=== PATIENT | male | born 1970 | race Caucasian/White ===

== ENCOUNTER 2024-05-05 10:36 | Emergency (ER) | payer OTHER, SELFPAY ==
[2024-05-05 10:45] VITALS: BP 145/72; PULSE 100; RESP 16; TEMP 36.9; O2SAT 100
--- NOTE | 2024-05-05 11:43 | ED.SKABFB ---
HPI - Skin/Abscess/Foreign Bdy General Chief complaint: Skin/Abscess/Foreign Body Stated complaint: Right leg wound weeping Time Seen by Provider: 05/05/24 11:24 Source: patient and RN notes reviewed Mode of arrival: ambulatory Limitations: no limitations History of Present Illness HPI narrative: Patient presents today with a large wound to his right thigh. Approximately 20 days ago patient had an abscess lanced and drained in a local ER due to folliculitis. States the abscess was very large. At that time he was placed on 10 days of doxycycline, which he finished. States he has been dressing his wound with a nonadherent dressing and Coban. Since he has had cellulitis in the past and has used hydrocortisone for irritation, he has been applying hydrocortisone around the incision site. He has also been only changing his dressing after rinsing with water every other day. Approximately 10 days ago the area started to weep yellow fluid from the skin surrounding the incision, not the incision itself, which has been healing well. He has not been able to see his PCP due to no appointment availability. Related Data Home Medications Medication Instructions Recorded Confirmed lisinopril 40 mg tablet 40 mg PO DAILY 05/05/24 05/05/24 Allergies Allergy/AdvReac Type Severity Reaction Status Date / Time No Known Allergies Allergy Unverified 01/12/19 10:59 Review of Systems Review of Systems: CONSTITUTIONAL: Denies body aches, fever, chills, or sweats. EYES: Denies visual changes, redness, or discharge. ENT: Denies rhinorrhea, congestion, sore throat, or otalgia. CARDIOVASCULAR: Denies chest pain, palpitations, or edema. RESPIRATORY: Denies cough or dyspnea. GASTROINTESTINAL: Denies abdominal pain, nausea, vomiting, or diarrhea. GENITOURINARY: Denies dysuria or hematuria. SKIN: Redness to right thigh MUSCULOSKELETAL: Denies back pain, joint pain, or myalgia. NEUROLOGIC: Denies headache, numbness, tingling, or weakness. PSYCH: Denies depression or anxiety. PMFSH Comments At time of signature, I have reviewed and agree with nursing past medical, surgical, social and family history unless otherwise noted. Please see nursing chart for further information. There is no relevant family history pertinent to the presenting complaint Exam Narrative: GENERAL: Well-appearing, well-nourished, and in no acute distress. HEAD: Normocephalic, atraumatic. EYES: EOMI. No redness or drainage. Conjunctivae normal. ENT: Mucous membranes pink and moist. NECK: Normal AROM. CHEST: No respiratory distress. EXTREMITIES: Right upper le x 15 cm area severe erythema and excoriation, with honey-colored weeping from the skin. Approximately 1.5 cm healing incision in the center. Mild induration. SKIN: Capillary refill normal. Normal skin turgor. NEURO: No focal deficits. Alert and oriented x3. Gait steady. PSYCH: Normal affect. No signs of depression or anxiety. Course Course Level of Care: Express Care Visit Vital Signs Vital signs: Vital Signs Temperature 98.4 F 05/05/24 10:45 Pulse Rate 100 05/05/24 10:45 Respiratory Rate 16 05/05/24 10:45 Blood Pressure 145/72 H 05/05/24 10:45 Pulse Oximetry 100 05/05/24 10:45 Oxygen Delivery Room Air 05/05/24 10:45 Temperature 98.4 F 05/05/24 10:45 Pulse Rate 100 05/05/24 10:45 Respiratory Rate 16 05/05/24 10:45 Blood Pressure 145/72 H 05/05/24 10:45 Pulse Oximetry 100 05/05/24 10:45 Oxygen Delivery Room Air 05/05/24 10:45 Reviewed MDM - Skin/Abscess/Foreign Bdy MDM Narrative Medical decision making narrative: Patient will be treated with Keflex and mupirocin for cellulitis and impetigo. Extensive wound care instructions given to patient. Anticipatory guidance given. ED precautions given. Differential Diagnosis Differential diagnosis: Likely abscess of skin or subcutaneous tissue, dermatophytosis, cellulitis, impetigo and contact de
== END 2024-05-05 11:50 | disposition home or self-care (01) ==
PROVIDERS: Emergency Provider Nurse Practitioner; PCP Emergency Medicine
DX: L03.115 Cellulitis of right lower limb (principal); L01.00 Impetigo, unspecified
CPT/HCPCS: 99213; G0463

== ENCOUNTER 2024-07-16 09:18 | Emergency (ER) | payer OTHER, SELFPAY ==
[2024-07-16 09:21] VITALS: BP 133/96; PULSE 81; RESP 16; TEMP 36.6; O2SAT 100
--- NOTE | 2024-07-16 09:26 | ED.SKABFB ---
HPI - Skin/Abscess/Foreign Bdy General Chief complaint: Skin/Abscess/Foreign Body Stated complaint: Hair folicle infection Source: patient Mode of arrival: ambulatory Limitations: no limitations History of Present Illness HPI narrative: 53 y/o male presents for c/o right thigh wound with redness and yellow/clear drainage over the past few days. Reports the same symptoms 04/2024, diagnosed with folliculitis then cellulitis. States he has been dressing his wound with a nonadherent dressing and Coban. Since he has had cellulitis in the past and has used hydrocortisone for irritation, he has been applying hydrocortisone around the incision site. He has also been only changing his dressing after rinsing with water every other day. He has not been able to see his PCP. Denies pain, n/v/d/f/c. Related Data Home Medications ?Medication ?Instructions ?Recorded ?Confirmed ?Last Taken ?Type lisinopril 40 mg tablet 40 mg PO DAILY 05/05/24 05/05/24 Unknown History Allergies Allergy/AdvReac Type Severity Reaction Status Date / Time No Known Allergies Allergy Verified 07/16/24 09:27 Review of Systems Review of Systems: CONSTITUTIONAL: Denies body aches, fever, chills, or sweats. EYES: Denies visual changes, redness, or discharge. ENT: Denies rhinorrhea, congestion CARDIOVASCULAR: Denies chest pain, palpitations, or edema. RESPIRATORY: Denies cough or dyspnea. GASTROINTESTINAL: Denies abdominal pain, nausea, vomiting, or diarrhea. SKIN: per HPI MUSCULOSKELETAL: Denies back pain, joint pain, or myalgia. NEUROLOGIC: Denies headache, numbness, tingling, or weakness. PMFSH Comments At time of signature, I have reviewed and agree with nursing past medical, surgical, social and family history unless otherwise noted. Please see nursing chart for further information. There is no relevant family history pertinent to the presenting complaint Exam Narrative: GENERAL: Well-appearing EYES: conjunctivae clear, and EOMI. ENT: Mucous membranes moist. Oropharynx without edema, erythema or lesions. NECK: Supple. No lymphadenopathy CHEST: Clear to auscultation. HEART: Regular rate and rhythm. SKIN: Warm, dry. Right anterior thigh with circular area of erythema 6cm diameter, medial and anterior thigh with patchy erythema c/w folliculitis/cellulitis approx 20cm diameter Areas are weeping honey colored serous fluid. No streaking, warmth, or tenderness. NEURO: Alert and oriented x3. Skin: Full body images:  1. 6cm area of erythema. 2. scattered erythema patches c/w folliculitis Course Course Emergency Course: Patient is aware of diagnosis, understands and agrees to treatment plan. Anticipatory guidance given. Patient agrees to follow-up as directed and is aware of reasons to seek care at the emergency department. Portions of this record may have been created with voice recognition software Level of Care: Express Care Visit Vital Signs Vital signs: Vital Signs Temperature 98 F 07/16/24 09:21 Pulse Rate 81 07/16/24 09:21 Respiratory Rate 16 07/16/24 09:21 Blood Pressure 133/96 H 07/16/24 09:21 Pulse Oximetry 100 07/16/24 09:21 Oxygen Delivery Room Air 07/16/24 09:21 Temperature 98 F 07/16/24 09:21 Pulse Rate 81 07/16/24 09:21 Respiratory Rate 16 07/16/24 09:21 Blood Pressure 133/96 H 07/16/24 09:21 Pulse Oximetry 100 07/16/24 09:21 Oxygen Delivery Room Air 07/16/24 09:21 Reviewed MDM - Skin/Abscess/Foreign Bdy MDM Narrative Medical decision making narrative: Patient will be treated with Keflex and mupirocin for cellulitis and impetigo. Advised f/u with pcp and derm as this is a recurrent problem Discussed physical exam findings. Advised supportive measures and signs/symptoms to go to the ER. Pt is appropriate for outpt treatment and f/u.. Instructed patient to go to nearest ER immediately for any worsening symptoms including but not limited to: fever, spreading rash, pain, sore throat, headache, dizziness, chest pain, trouble breathing, or any symptoms concerning to the patient. Differential Diagnosis Differential diagnosis: Likely abscess of skin or subcutaneous tissue, urticaria, herpes zoster, cellulitis and contact dermatitis Discharge Plan Discharge Clinical Impression: Cellulitis Patient Disposition: Home, Self-Care Condition: Stable Instructions: Antibiotic Form, Cellulitis (ED) Additional Instructions: Keep the area clean and dry - cleanse with warm water and mild soap and allow to fully dry. apply the ointment as directed to the site Take antibiotic as directed Keep it open to air if possible (no bandages unless the site is draining) Watch for worsening symptoms including pain, redness, swelling, streaking, pus/drainage, fever. Go to the ER with any of these symptoms or concerns. Follow up with primary care provider in 1-2 weeks, call today to schedule an appointment Recommend follow up with dermatology as this is a recurrent issue Dermatologists: [facility] [address] [phone] [facility] [address] [phone] [facility] [address] [place] [phone] [facility] [address] [phone] Patient Language: Urdu Prescriptions: New cephalexin 500 mg capsule 500 mg PO Q6H 10 Days Qty: 40 0RF mupirocin 2 % ointment 1 applic topical BID 14 Days Qty: 22 0RF No Action lisinopril 40 mg tablet 40 mg PO DAILY Follow-up/Referrals: Jb Aquino MD [Primary Care Provider] - Time of Disposition: 09:39
--- OUTSIDE RECORDS SUMMARY | 2024-07-23 23:44 | XMS_ITS | Continuity of Care Document ---
Author Organization [facility] Address [address] [place] [id number] Care Team Providers Care Regional Owner Operator Truck Driver Name Role Phone AquinoJb Anay Primary Care Physician Encounter [facility] Financial Number [id number] Date(s): 06/21/22 - 06/21/[address] [id number] Encounter Diagnosis Syncope and collapse(Discharge Diagnosis) - 06/21/22 Discharge Disposition: Home or Self Care Attending Physician: Chino Wolfe ELECTRON BEAM WELDING MACHINE OPERATOR Referring Physician: Self, Referred Allergies, Adverse Reactions, Alerts No Known Allergies Medications dextromethorphan-promethazine 15 mg-6.25 mg/5 mL oral syrup 5 mL, Oral, r0nygth, PRN, 120 mL, 0, 0, cough, 06/28/2022 1911, Route to Pharmacy Electronically, [facility], [id number], 190, cm, 06/21/2022 1520, Height, 105, kg, 06/21/2022 1520, Weight Start Date: 06/21/22 Stop Date: 06/28/22 Status: Ordered lisinopril 40 mg oral tablet 0 Start Date: 06/21/22 Status: Ordered Vitamin D3 0 Start Date: 06/21/22 Status: Ordered Mental Status 06/21/22 Orientation Oriented x 4 Vital Signs Most recent to oldest [Reference Range]: 1 Temperature Temporal Artery [35.8-38 Deg C] 38.4 DegC *H* (06/21/22 2:24 PM) Peripheral Pulse Rate [60-100 bpm] 126 b pm *H (06/21/22 2:24 PM) Respiratory Rate [14-22 br/min] 28 br/mi n *H* (06/21/22 2:24 PM) Blood Pressure [89-139/60-90 mm Hg] 122/ 73mm Hg (06/21/22 2:24 PM) Social History Social History Type Response Alcohol Never alcohol user Substance Abuse Never drug user Smoking Status Never smoker;Never; Tobacco Cessation Counseling Requested N/A entered on: 06/21/22 Sex Note * Chino Wolfe ELECTRON BEAM WELDING MACHINE OPERATOR: PERFORM, SIGN, VERIFY Event Display: [facility] Note-Physician Authored Date: Patient: CHANDLER IGNACIO Age: 51 years Sex: Male : 1970 Associated Diagnoses: None Author: Chino Wolfe NP Basic Information Vital signs: Vital Signs 06/21/2022 14:24 INFECTION PREVENTION PRACTITIONER Temperature Temporal Artery 38.4 DegC H Peripheral Pulse Rate 126 bpm H* Respiratory Rate 28 br/min H Systolic Blood Pressure 122 mm Hg Diastolic Blood Pressure 73 mm Hg , Oxygen saturation: Basic Oxygen Information 06/21/2022 14:24 INFECTION PREVENTION PRACTITIONER Oxygen Saturation 100 % . Time seen: Date & time 06/21/2022 14:42:00. Additional information:: Chief Complaint from Nursing Triage Note : Chief Complaint Description 06/21/2022 14:24 INFECTION PREVENTION PRACTITIONER Chief Complaint Description at 1200 passed out while standing in line, had blurry vision, has had an upper respiratory complaints, coughing, stuffy nose, not sleeping, fatigued feeling, poor apetite, feels weak . History of Present Illness The patient presents with syncope. The onset was just prior to arrival. Associated symptoms: fever,chills, shortness of breath and dizziness. Review of Systems Constitutional symptoms: Fever, chills. Skin symptoms: no rash Eye symptoms: no recent vision problems ENMT symptoms: Nasal congestion, sinus pain no ear pain, no sore throat. Respiratory symptoms: Cough no shortness of breath, no sputum production, no wheezing. Cardiovascular symptoms: Palpitations, syncope, no chest pain. Gastrointestinal symptoms: no abdominal pain no nausea, no vomiting, no diarrhea. Genitourinary symptoms: no dysuria Musculoskeletal symptoms: no back pain Neurologic symptoms: Headache, no dizziness. Health Status Allergies: Allergic Reactions (Selected) NKA. Past Medical/ Family/ Social History Medical history Problem List from Nurse's Notes All Problems High blood pressure / SNOMED CT 7652007569 / Confirmed. Surgical history: Procedure History from Nurses Notes No active procedure history items have been selected or recorded.. Family history: Family History from Nurse's Notes No family history items have been selected or recorded.. Social history: Social History from Nurses Notes Alcohol Details: Never alcohol user Substance Abuse Details: Never drug user Tobacco Details: Never smoker, Smokeless Tobacco use: Never. N/A Cessation Counseling. . Physical Examination General: Alert. no acute distress. Skin: Warm. dry. Eye: Extraocular movements are intact Ears, nose, mouth and throat: Oral mucosa moist. Tympanic membrane: bilateral: and normal. Nose/nares: bilateral nares:, congestion, discharge and swelling. Sinus: bilateral:. Throat: mild and erythema, not with exudate, no uvula shift. Neck: Supple. trachea midline. Cardiovascular: Tachycardia Respiratory: Breath sounds are equal. Respirations: regular. Breath sounds: bilateral and clear. Retractions: none. Medical Decision Making Differential Diagnosis: Syncope, acute myocardial infarction, dysrhythmia, anxiety, dehydration, cerebral vascular accident, seizure. Rationale see PE and HPI. Procedure Stroke Thrombolysis Patient is:: Not a candidate for TPA because: (see comment) he is not having TPA. NIH Stroke Scale Date\Time NIH Stroke Scale Assessed: 06/21/2022 14:52:00. Level of consciousness: Alert = 0. Current month and age: Answers both correctly = 0. Open and close eyes/rehanger release hand: Obeys both correctly = 0. Best gaze: Normal = 0. Visual field testing: No visual field loss = 0. Facial paresis: Normal symmetric movement = 0. Motor function left arm: Normal = 0. Motor function right arm: Normal = 0. Motor function left leg: Normal = 0. Motor function right leg: Normal = 0. Limb ataxia: No ataxia = 0. Sensory: Normal = 0. Best language: No aphasia = 0. Dysarthria: Normal articulation = 0. Extinction and inattention: Normal = 0. Total score: Total score 0. Critical care services delivered? No Impression and Plan Diagnosis Syncope and collapse : [id number], Discharge, Emergency medicine, Medical Discharge plan Notes: He was having URI symptoms from last Friday along with diarrhea, dizziness and just prior to arrival he had syncopal episode while standing in a store, he is also complaining of SOB, he is tachycardic, has dry mucous membrane, he is febrile. I am sening him to [facility] ED for further evaluation. I spoke with Clare Preciado in ED who acceptedthe pt. . [Electronically Signed on 06/21/2022 02:52 PM INFECTION PREVENTION PRACTITIONER] Chino Wolfe ELECTRON BEAM WELDING MACHINE OPERATOR * Jeniffer Colon Thread Milling Machine Set Up Operator: PERFORM Event Display: SureScripts consent - Text Authored Date: SureScripts Consent Entered On: 06/21/2022 14:23 INFECTION PREVENTION PRACTITIONER Performed On: 06/21/2022 14:23 INFECTION PREVENTION PRACTITIONER by Jeniffer Colon Thread Milling Machine Set Up Operator SureScripts Consent Consent for Surescripts Granted : Yes Jeniffer Colon Thread Milling Machine Set Up Operator - 06/21/2022 14:23 INFECTION PREVENTION PRACTITIONER EKG study * Event Display: EKG Report * Event Display: EKG Regular * Event Display: EKG Regular Authored Date: Vent Rate: 121 bpm RR Interval: 493 msec MI Interval: 135 msec QRS Duration: 89 msec QT Interval: 312 msec QTC Interval: 384 msec P-R-T [place]: 5 - -44 - 9 degrees SINUS TACHYCARDIA LEFT AXIS DEVIATION POSSIBLE ANTERIOR MYOCARDIAL INFARCTION , PROBABLY OLD ABNORMAL ECG Electronically Signed By: Edith Lloyd MD Nurse Urgent care center Note * Celine Okeefe Clinical Educator: PERFORM Event Display: [facility] Note-Nursing Authored Date: Urgent Care Triage Entered On: 06/21/2022 14:28 INFECTION PREVENTION PRACTITIONER Performed On: 06/21/2022 14:24 INFECTION PREVENTION PRACTITIONER by Celine Okeefe Clinical Educator [facility] Triage Chief Complaint Description : at 1200 passed out while standing in line, had blurry vision, has hadan upper respiratory complaints, coughing, stuffy nose, not sleeping, fatigued feeling, poor apetite, feels weak Celine Okeefe Clinical Educator - 06/21/2022 14:24 INFECTION PREVENTION PRACTITIONER DCP GENERIC CODE Tracking Acuity : 2 - Urgent Tracking [facility] Celine Okeefe Clinical Educator - 06/21/2022 14:24 INFECTION PREVENTION PRACTITIONER Temperature Temporal Artery : 38.4 DegC(Converted to: 101.1 DegF) (H) Peripheral Pulse Rate : 126 bpm (H*) Respiratory Rate : 28 br/min (H) Systolic/Diastolic BP : 122 mm Hg Systolic/Diastolic BP : 73 mm Hg Oxygen Saturation : 100 % UCC Oxygen Therapy : Room air Pain Symptoms : No Celine Okeefe Clinical Educator - 06/21/2022 14:24 INFECTION PREVENTION PRACTITIONER (As Of: 06/21/2022 14:28 INFECTION PREVENTION PRACTITIONER) Problems(Active) High blood pressure (SNOMED CT :[id number] ) Name of Problem: High blood pressure ; Recorder: Celine Okeefe Clinical Educator; Confirmation: Confirmed ; Classification: Patient Stated ; Code: [id number] ; Contributor System: Prysm ; Last Updated: 06/21/2022 14:27 INFECTION PREVENTION PRACTITIONER ; Life Cycle Date: 06/21/2022 ; Life Cycle Status: Active ; Vocabulary: SNOMED CT Diagnoses(Active) Syncope Date: 06/21/2022 ; Diagnosis Type: Reason For Visit ; Confirmation: Complaint of ; Clinical Dx: Syncope ; Classification: Medical ; Clinical Service: Emergency medicine ; Code: PNED ; Probability: 0 ;Diagnosis Code: [id number] - Procedure History (As Of: 06/21/2022 14:28 INFECTION PREVENTION PRACTITIONER) Document Allergies/Home Meds Anticoagulant Therapy in Last 7 Days : No Celine Okeefe Clinical Educator - 06/21/2022 14:24 INFECTION PREVENTION PRACTITIONER (As Of: 06/21/2022 14:28 INFECTION PREVENTION PRACTITIONER) Allergies (Active) NKA Estimated Onset Date: Unspecified ; Created By: Celine Okeefe Clinical Educator; Reaction Status: Active ; Category: Drug ; Substance: NKA ; Type: Allergy ; Updated By: Celine Okeefeator; Reviewed Date: 06/21/2022 14:25 INFECTION PREVENTION PRACTITIONER Medication List (As Of: 06/21/2022 14:28 INFECTION PREVENTION PRACTITIONER) Home Meds cholecalciferol : cholecalciferol ; Status: Documented ; Ordered As Mnemonic: Vitamin D3 ; Simple Display Line: 0 Refill(s) ; Catalog Code: cholecalciferol ; Order Dt/Tm: 06/21/2022 14:25 INFECTION PREVENTION PRACTITIONER lisinopril : lisinopril ; Status: Documented ; Ordered As Mnemonic: lisinopril 40 mg oral tablet ; Simple Display Line: 0 Refill(s) ; Catalog Code: lisinopril ; Order Dt/Tm: 06/21/2022 14:25 INFECTION PREVENTION PRACTITIONER Screening Infectious Disease Travelled or Contact in last month? : No contact with ill traveler Tuberculosis : No Last 3 Months, Exposed to resp. llness? : No Last 3 Months, Had a resp. illness? : No Celine Okeefe Clinical Educator - 06/21/2022 14:24 INFECTION PREVENTION PRACTITIONER [facility] General Assessment/Social Hx Child/Parent Domestic Concerns : None Little interest/pleasure in doing things? : No Feeling down, depressed, or hopeless? : No Barriers to Learning : None evident Preferred Mode of Communication : Verbal Preferred Language of Patient/Caregiver ED : Maltese [facility] Call Patient Back : No [facility] Plan of Care Discussed : Yes Celine Okeefe Clinical Educator - 06/21/2022 14:24 INFECTION PREVENTION PRACTITIONER Social History (As Of: 06/21/2022 14:28 INFECTION PREVENTION PRACTITIONER) Tobacco: Never smoker, Smokeless Tobacco use: Never. N/A Cessation Counseling. (Last Updated: 06/21/2022 14:26 INFECTION PREVENTION PRACTITIONER by Celine Okeefe Clinical Educator) Alcohol: Never alcohol user (Last Updated: 06/21/2022 14:26 INFECTION PREVENTION PRACTITIONER by Celine Okeefe Clinical Educator) Substance Abuse: Never drug user (Last Updated: 06/21/2022 14:26 INFECTION PREVENTION PRACTITIONER by Celine Okeefe Clinical Educator) Fall Risk Assessment Peds with adult : No History of Fall in Last 3 Months [place] : No Fell Prior to Hospitalization : No Unsteady when Walking/Climbing Stairs? : No Fell During Hospitalization : No Presence of Secondary Diagnosis [place] : No Use of Ambulatory Aid [place] : None, bedrest, wheelchair, nurse IV/Heparin Lock Fall Risk [place] : No Gait Weak or Impaired Fall Risk [place] : Normal, bedrest, immobile Mental Status Fall Risk [place] : Oriented to own ability [place] Fall Risk Score : 0 Celine Okeefe Clinical Educator - 06/21/2022 14:24 INFECTION PREVENTION PRACTITIONER Novel Coronavirus Assessment Novel Coronavirus Current Fever : Yes Novel Coronavirus Fever 14 days : No Novel Coronavirus Exposed COVID 14 days : No Novel Coronavirus Previous Outside Labs : No Novel Coronavirus Received Vaccine : Yes Novel Coronavirus Vaccine Type : Pfizer Novel Coronavirus Completed Vac Series : Yes Novel Coronavirus Booster Vaccine Received : No Celine Okeefe Clinical Educator - 06/21/2022 14:24 INFECTION PREVENTION PRACTITIONER Patient Care team information Care Team Personnel Name: Jb Aquino MD Position: [place] FAX ONLY - MD NOT ON STAFF Member Role: Primary Care Physician Address: Address: [address] [place] [address] [place] [address] [place] Name: Chino Wolfe ELECTRON BEAM WELDING MACHINE OPERATOR Position: [facility] Nurse Practitioner Member Role: Attending Physician Address: Address: [address] [place] [address] Name: Celine Okeefe Clinical Educator Position: [facility] Nurse Husbandry Technician Member Role: [facility] Nurse
--- OUTSIDE RECORDS SUMMARY | 2024-07-23 23:44 | XMS_ITS | Continuity of Care Document ---
Author Organization [facility] Address [address] [place] [phone] Care Team Providers Care Quality Assurance Manager Name Role Phone Miles Jb Cueva Primary Care Physician Encounter [facility] Financial Number [id number] Date(s): 06/21/22 - 06/21/[address] [id number] Encounter Diagnosis Influenza A(Discharge Diagnosis) - 06/21/22 Discharge Disposition: Home with Physician Follow-up Attending Physician: Clare Pickens NP Referring Physician: Self, Referred Allergies, Adverse Reactions, Alerts No Known Allergies Medications dextromethorphan-promethazine 15 mg-6.25 mg/5 mL oral syrup 5 mL, Oral, [id number], PRN, 120 mL, 0, 0, cough, 06/28/2022 1911, Route to Pharmacy Electronically, [id number], [id number], 190, cm, 06/21/2022 1520, Height, 105, kg, 06/21/2022 1520, Weight Start Date: 06/21/22 Stop Date: 06/28/22 Status: Ordered lisinopril 40 mg oral tablet 0 Start Date: 06/21/22 Status: Ordered Vitamin D3 0 Start Date: 06/21/22 Status: Ordered Results Laboratory List Name Date CBC with Differential 06/21/22 Comprehensive Metabolic Profile (CMP) Differential, Automated 06/21/22 Most recent to oldest [Reference Range]: 1 Albumin [3.5-5.0 g/dL] 3.9 g/dL (06/21/22 5:42 PM) Alk Phos [38-126 U/L] 72 U/L (06/21/22 5:42 PM) BUN [9-20 mg/dL] 26 mg/dL *H* (06/21/22 5:42 PM) Calcium [8.4-10.2 mg/dL] 8.7 mg/dL (06/21/22 5:42 PM) Chloride [98-107 mmol/L] 105 mmol/L (06/21/22 5:42 PM) CO2 [22-30 mmol/L] 24 mmol/L (06/21/22 5:42 PM) Glucose [74-106 mg/dL] 117 mg/dL *H* (06/21/22 5:42 PM) Potassium [3.5-4.9 mmol/L] 3.9 mmol/L (06/21/22 5:42 PM) Sodium [137-145 mmol/L] 137 mmol/L (06/21/22 5:42 PM) Protein, Total [6.5-8.6 g/dL] 6.5 g/dL (06/21/22 5:42 PM) Baso # [0.0-0.2 K/uL] 0.0 K/uL (06/21/22 5:42 PM) Eos # [0.0-0.7 K/uL] 0.0 K/uL (06/21/22 5:42 PM) Hematocrit [40.0-48.0 %] 41.9 % (06/21/22 5:42 PM) Lymph % 16 % (06/21/22 5:42 PM) Lymph # [0.7-4.5 K/uL] 1.3 K/uL (06/21/22 5:42 PM) MCHC [31.5-35.5 g/dL] 33.7 g/dL (06/21/22 5:42 PM) MCH [27.2-32.6 pg] 31.0 pg (06/21/22 5:42 PM) MCV [82.0-99.0 fL] 92.1 fL (06/21/22 5:42 PM) Coffey # [0.1-1.3 K/uL] 1.3 K/uL (06/21/22 5:42 PM) MPV [9.3-12.4 fL] 11.6 fL (06/21/22 5:42 PM) Neutro # [1.9-7.0 K/uL] 5.4 K/uL (06/21/22 5:42 PM) Platelet [140-350 K/uL] 166 K/uL (06/21/22 5:42 PM) RBC [4.50-5.40 M/uL] 4.55 M/uL (06/21/22 5:42 PM) RDW [11.5-14.5 %] 13.2 % (06/21/22 5:42 PM) WBC [4.3-10.0 K/uL] 8.0 K/uL (06/21/22 5:42 PM) Neutro % 67 % (06/21/22 5:42 PM) Coffey % 16 % (06/21/22 5:42 PM) Eos % 0 % (06/21/22 5:42 PM) Baso % 0 % (06/21/22 5:42 PM) Nucleated RBCs [0-0 %] 0 % (06/21/22 5:42 PM) AST [14-54 U/L] 35 U/L (06/21/22 5:42 PM) Bilirubin, Total [0.2-1.3 mg/dL] 0.5 mg/ dL (06/21/22 5:42 PM) Creatinine [0.7-1.3 mg/dL] 1.2 mg/dL (06/21/22 5:42 PM) Hemoglobin [13.6-16.5 g/dL] 14.1 g/dL (06/21/22 5:42 PM) eGFR(4vMDRD) [>=60 mL/min/1.73m2] >60 mL /min/1.73m2 (06/21/22 5:42 PM) eCrCl(C-Gault) 1.0 mL/min/kg (06/21/22 5:42 PM) Immature Gran % [0.0-0.5 %] 0.4 % (06/21/22 5:42 PM) Differential Type Automated (06/21/22 5:42 PM) Anion Gap [7-16 mmol/L] 8 mmol/L (06/21/22 5:42 PM) ALT [<=50 U/L] 31 U/L (06/21/22 5:42 PM) Vital Signs Most recent to oldest [Reference Range]: 1 2 Temperature Temporal Artery [35.8-38 Deg C] 37.1 DegC (06/21/22 6:30 PM) 38.2 DegC *H* (06/21/22 3:20 PM) Peripheral Pulse Rate [60-100 bpm] 126 b pm *H (06/21/22 3:20 PM) Respiratory Rate [14-22 br/min] 18 br/mi n (06/21/22 3:20 PM) Blood Pressure [89-139/60-90 mm Hg] 118/ 65mm Hg (06/21/22 3:20 PM) Height 190 cm (06/21/22 3:20 PM) Weight 105 kg (06/21/22 3:20 PM) Social History Social History Type Response Alcohol Never alcohol user Substance Abuse Never drug user Smoking Status Never smoker;Never; Tobacco Cessation Counseling Requested N/A entered on: 06/21/22 Sex Hospital Discharge Instructions Patient Education 06/21/2022 19:12:16 Influenza (Adult) Influenza (Adult) Influenza is also called the flu. It's a viral illness that affects the air passages of your lungs.It's different from the common cold. The flu can easily be passed from one to person to another. Itmay be spread through the air by coughing and sneezing. Or it can be spread by touching the sick person and then touching your own eyes, nose, or mouth. The flu starts 1 to 3 days after you are exposed to the flu virus. It may last??for 1 to 2 weeks but sometimes people feel tired or fatigued for many weeks afterward. You usually don???t need to takeantibiotics unless you are at high risk for or have a complication . This might be an ear or sinus infection or pneumonia. Symptoms of the flu may be mild or severe. They can include extreme tiredness (wanting to stay in bed all day), chills, fevers, muscle aches, soreness with eye movement, headache, and a dry, hacking cough. Antiviral medicine for the flu is available by prescription. If you start taking it within 48 hours, it may help reduce how long your symptoms last and how severe they are. Your provider may do a test to find out if you have influenza and which strain you have. Home care Follow these guidelines when caring for yourself at home: ???Stay away from cigarette smoke, whether yours or other people???s. ???Acetaminophen or ibuprofen will help ease your fever, muscle aches, and headache. Don???t give aspirin to anyone younger than 18 who has the flu. This can cause a serious condition called Simin syndrome. ???Nausea, loose stools, and loss of appetite are common with the flu. Eat light meals. Drink 6 to 8 glasses of liquids every day. Good choices are water, sport drinks, soft drinks without caffeine, juices, tea, and soup. Extra fluids will also help loosen secretions in your nose and lungs. ???Pbae-lig-jajzrly cold medicines will not make the flu go away faster. But the medicines may helpwith coughing, sore throat, and congestion in your nose and sinuses. Don???t use a decongestant if you have high blood pressure. ???Stay home until your fever has been gone for at least 24 hours without using medicine to reduce fever. Follow-up care Follow up with your healthcare provider, or as advised, if you are not getting better over the nextweek. If you are age 65 or older, talk with your provider about getting a pneumococcal vaccine every 5 years. You should also get this vaccine if you have chronic asthma or COPD. All adults should get a flu vaccine every fall. Ask your provider about this. When to seek medical advice Call your healthcare provider right away if you have the flu and any of these occur: ???Cough with lots of colored mucus (sputum) or blood in your mucus ???Chest pain, shortness of breath, wheezing, or trouble breathing ???Severe headache, or face, neck, or ear pain ???New rash??with fever ???Fever of 100.4??F (38??C)??or higher, or as??directed by your healthcare provider ???Confusion, behavior change, or seizure ???Severe weakness or dizziness ???You get a new??fever or cough after getting better for a few days Also call your provider if you have flu symptoms and have a weakened immune system or are taking medicines that can weaken your immune system. These include steroids and certain anti-inflammatory medicines. ?? 3382-1778 [employer]. All rights reserved. This information is not intended as a substitute for professional medical care. Always follow your healthcare professional's instructions. Note * Event Display: Authorization to Treat Authored Date: * Event Display: Authorization to Treat Authored Date: * Silvia Bernal RN: PERFORM Event Display: Health History/Procedures - Text Authored Date: ED Health History/Procedures Entered On: 06/21/2022 18:49 [employer] Performed On: 06/21/2022 18:48 [employer] by Silvia Bernal RN Problem List Adult Past Medical History Reviewed : Yes Silvia Bernal RN - 06/21/2022 18:48 [employer] (As Of: 06/21/2022 18:49 [employer]) Problems(Active) High blood pressure (SNOMED CT :8298040658 ) Name of Problem: High blood pressure ; Recorder: Celine Okeefe Clinical Educator; Confirmation: Confirmed ; Classification: Patient Stated ; Code: [id number] ; Contributor System: [employer] ; Last Updated: 06/21/2022 14:27 [employer] ; Life Cycle Date: 06/21/2022 ; Life Cycle Status: Active ; Vocabulary: SNOMED CT Diagnoses(Active) Syncope Date: 06/21/2022 ; Diagnosis Type: Reason For Visit ; Confirmation: Confirmed ; Clinical Dx: Syncope; Classification: Medical ; Clinical Service: Emergency medicine ; Code: PNED ; Probability: 0 ; Diagnosis Code: [id number] Family Health History Family History Reviewed : Yes Silvia Bernal RN - 06/21/2022 18:48 [employer] Family History (As Of: 06/21/2022 18:49 [employer]) Procedure History Procedure History Reviewed : Yes Silvia Bernal RN - 06/21/2022 18:48 [employer] - Procedure History (As Of: 06/21/2022 18:49 [employer]) Social Habits Travelled or Contact in last month? (ED) : No travel and no contact with ill traveler in the last month Immunizations Current : No Tetanus Immunization Status : >10 years Flu Vaccine This Season? : No Tuberculosis : No Last 3 Months, Exposed to resp. llness? : No Last 3 Months, Had a resp. illness? : No Silvia Bernal RN - 06/21/2022 18:48 [employer] Social History (As Of: 06/21/2022 18:49 [employer]) Tobacco: Never smoker, Smokeless Tobacco use: Never. N/A Cessation Counseling. (Last Updated: 06/21/2022 14:26 [employer] by Celine Okeefe Clinical Educator) Alcohol: Never alcohol user (Last Updated: 06/21/2022 14:26 [employer] by Celine Okeefe Clinical Educator) Substance Abuse: Never drug user (Last Updated: 06/21/2022 14:26 [employer] by Celine Okeefe Clinical Educator) Medical Devices Medical Devices : None Radiology Testing Barriers/Precautions : None Silvia Bernal RN - 06/21/2022 18:48 [employer] * Justina Teran RN: PERFORM, SIGN, VERIFY Event Display: Prearrival Note Authored Date: Pre-Arrival Summary Name: Sandee Liao) Chandler mercer Current Date: 06/21/2022 15:15 [employer] Gender: Male Date of : 1970 Age: 51 years Pre-Arrival Type: Referral ETA: 06/21/2022 15:15 [employer] Primary Care Physician: Presenting Problem: fever Pre-Arrival User: Clare Pickens NP Referring Physician: Location: Pre-Arrival Referral Source: [facility] [address] ED Pre-Arrival Documentation EMS Report / HPI: pt sent from [facility] for fever, sob, tachypnea started 4 days ago.reports near syncopal episode. Vitals: Referral/MD Note: Radiology Exam Requested: Labs Requested: Other Treatments/Plan: Physician Callback Number (Cellphone): * Event Display: Ambulance Run Sheets * Event Display: Ambulance Run Sheets Emergency department Discharge summary * Silvia Bernal RN: PERFORM Event Display: ED Patient Summary Authored Date: CHANDLER IGNACIO :1970 Visit Date:06/21/2022 [facility] Emergency Department Discharge Instructions Patient Information Name:CHANDLER IGNACIO Address: [address] [place] [address] [place], [place] [id number] Sex:Male Date of :1970 [facility]:[id number] Location:[facility] Registration Date and Time:06/21/2022 15:14 [employer] Location Information ?[facility] Emergency Department ([place])?[address] ?? Your Diagnosis Diagnosis ?Syncope?Reason For Visit ?Influenza A?Discharge ?? Discharge Vitals Vital Signs Height: 190 cm Weight: 105 kg Weight Source: Actual Body Mass Index: 29.09 kg/m2 Temperature Temporal Artery: 37.1 DegC Temperature Temporal Artery:??38.2 DegC??High Systolic Blood Pressure: 118 mm Hg Diastolic Blood Pressure: 65 mm Hg Peripheral Pulse Rate:??126 bpm??Critical Respiratory Rate: 18 br/min Oxygen Saturation: 97 % Medications [facility] Emergency Department has provided you with a complete list of medications post discharge, if you have been instructed to stop taking a medication please ensure you also follow up with this information to your Primary Care Physician. Unless otherwise noted, patient will continue to take medications as prescribed prior to the Emergency Department visit. Any specific questions regardingyour chronic medications and dosages should be discussed with your physician(s) and pharmacist. What How Much When Instructions New dextromethorphan-promethazine (dextromethorphan-promethazine 15mg-6.25 mg/ 5 mL oral syrup) 5 Milliliter By mouth Every 4 hours as needed for cough Pickup at [facility] Unchanged cholecalciferol (Vitamin D3) Unchanged lisinopril (lisinopril 40 mg oral tablet) Pharmacy Information [facility]: [address] [place], [place] [id number] [phone] Medications and Immunizations Administered Medication Administrations ? No Results Found ? Allergies NKA Labs Test Name Test Result Date/TimeWBC 8.0 K/uL 06/21/2022 17:42 [employer] Nucleated RBCs 0 % 06/21/2022 17:42 [employer] RBC 4.55 M/uL 06/21/2022 17:42 [employer] Hemoglobin 14.1 g/dL 06/21/2022 17:42 [employer] Hematocrit 41.9 % 06/21/2022 17:42 [employer] MCV 92.1 fL 06/21/2022 17:42 [employer] MCH 31.0 pg 06/21/2022 17:42 [employer] MCHC 33.7 g/dL 06/21/2022 17:42 [employer] RDW 13.2 % 06/21/2022 17:42 [employer] MPV 11.6 fL 06/21/2022 17:42 [employer] Platelet 166 K/uL 06/21/2022 17:42 [employer] Differential Type Automated 06/21/2022 17:42 [employer] Immature Gran % 0.4 % 06/21/2022 17:42 [employer] Neutro % 67 % 06/21/2022 17:42 [employer] Lymph % 16 % 06/21/2022 17:42 [employer] Coffey % 16 % 06/21/2022 17:42 [employer] Eos % 0 % 06/21/2022 17:42 [employer] Baso % 0 % 06/21/2022 17:42 [employer] Neutro # 5.4 K/uL 06/21/2022 17:42 [employer] Lymph # 1.3 K/uL 06/21/2022 17:42 [employer] Coffey # 1.3 K/uL 06/21/2022 17:42 [employer] Eos # 0.0 K/uL 06/21/2022 17:42 [employer] Baso # 0.0 K/uL 06/21/2022 17:42 [employer] Sodium 137 mmol/L 06/21/2022 17:42 [employer] Potassium 3.9 mmol/L 06/21/2022 17:42 [employer] Chloride 105 mmol/L 06/21/2022 17:42 [employer] CO2 24 mmol/L 06/21/2022 17:42 [employer] Anion Gap 8 mmol/L 06/21/2022 17:42 [employer] BUN 26 mg/dL (High) 06/21/2022 17:42 [employer] Creatinine 1.2 mg/dL 06/21/2022 17:42 [employer] Glucose 117 mg/dL (High) 06/21/2022 17:42 [employer] Calcium 8.7 mg/dL 06/21/2022 17:42 [employer] Protein, Total 6.5 g/dL 06/21/2022 17:42 [employer] Albumin 3.9 g/dL 06/21/2022 17:42 [employer] Alk Phos 72 U/L 06/21/2022 17:42 [employer] Bilirubin, Total 0.5 mg/dL 06/21/2022 17:42 [employer] AST 35 U/L 06/21/2022 17:42 [employer] ALT 31 U/L 06/21/2022 17:42 [employer] eGFR(4vMDRD) >60 mL/min/1.73m2 06/21/2022 17:42 [employer] eCrCl(C-Gault) 1.0 mL/min/kg 06/21/2022 17:42 [employer] Influenza A RNA POSITIVE. (Abnormal) 06/21/2022 17:42 [employer] Influenza B RNA Negative 06/21/2022 17:42 [employer] RSV RNA Negative 06/21/2022 17:42 [employer] SARS-CoV-2 (COVID-19) RNA Negative 06/21/2022 17:42 [employer] Radiology ? COMPLETED RADIOLOGY IMAGING STUDIES: ? No Imaging Results in the last 36 hours Education Materials Influenza (Adult) Influenza is also called the flu. It's a viral illness that affects the air passages of your lungs.It's different from the common cold. The flu can easily be passed from one to person to another. Itmay be spread through the air by coughing and sneezing. Or it can be spread by touching the sick person and then touching your own eyes, nose, or mouth. The flu starts 1 to 3 days after you are exposed to the flu virus. It may last??for 1 to 2 weeks but sometimes people feel tired or fatigued for many weeks afterward. You usually don???t need to takeantibiotics unless you are at high risk for or have a complication . This might be an ear or sinus infection or pneumonia. Symptoms of the flu may be mild or severe. They can include extreme tiredness (wanting to stay in bed all day), chills, fevers, muscle aches, soreness with eye movement, headache, and a dry, hacking cough. Antiviral medicine for the flu is available by prescription. If you start taking it within 48 hours, it may help reduce how long your symptoms last and how severe they are. Your provider may do a test to find out if you have influenza and which strain you have. Home care Follow these guidelines when caring for yourself at home: ???Stay away from cigarette smoke, whether yours or other people???s. ???Acetaminophen or ibuprofen will help ease your fever, muscle aches, and headache. Don???t give aspirin to anyone younger than 18 who has the flu. This can cause a serious condition called Simin syndrome. ???Nausea, loose stools, and loss of appetite are common with the flu. Eat light meals. Drink 6 to 8 glasses of liquids every day. Good choices are water, sport drinks, soft drinks without caffeine, juices, tea, and soup. Extra fluids will also help loosen secretions in your nose and lungs. ???Yrkq-nnq-jdjlvhv cold medicines will not make the flu go away faster. But the medicines may helpwith coughing, sore throat, and congestion in your nose and sinuses. Don???t use a decongestant if you have high blood pressure. ???Stay home until your fever has been gone for at least 24 hours without using medicine to reduce fever. Follow-up care Follow up with your healthcare provider, or as advised, if you are not getting better over the nextweek. If you are age 65 or older, talk with your provider about getting a pneumococcal vaccine every 5 years. You should also get this vaccine if you have chronic asthma or COPD. All adults should get a flu vaccine every fall. Ask your provider about this. When to seek medical advice Call your healthcare provider right away if you have the flu and any of these occur: ???Cough with lots of colored mucus (sputum) or blood in your mucus ???Chest pain, shortness of breath, wheezing, or trouble breathing ???Severe headache, or face, neck, or ear pain ???New rash??with fever ???Fever of 100.4??F (38??C)??or higher, or as??directed by your healthcare provider ???Confusion, behavior change, or seizure ???Severe weakness or dizziness ???You get a new??fever or cough after getting better for a few days Also call your provider if you have flu symptoms and have a weakened immune system or are taking medicines that can weaken your immune system. These include steroids and certain anti-inflammatory medicines. ?? 5158-2551 [employer] All rights reserved. This information is not intended as a substitute for professional medical care. Always follow your healthcare professional's instructions. In need of a Physician? Call [facility] Referral Service [phone]. Thank you for choosing [facility]s Emergency Department for your care. The examination and treatment you have received in the Emergency Department today have been rendered on an emergency basis onlyand is not intended to be a substitute for complete medical care. You should contact your follow-upphysician as it is important that he or she exam you for any new or remaining problems. If your problem worsens or new symptoms appear and you are unable to arrange prompt follow-up care, call or return to this emergency department. I have been given the following list of patient education materials, prescriptions, and follow up instructions and have verbalized understanding. Provider Signature: Patient/Aviation Consultant Signature: Relationship to Patient: Date/Time:06/21/2022 19:19:41 * Clare Pickens MARKETING SEGMENT MANAGER: PERFORM, SIGN, VERIFY Event Display: ED Patient Summary Authored Date: [facility] Emergency Department [phone] Discharge Instructions (Patient) Name: SANDEECHANDLER Current Date: 06/21/2022 19:12:19 [facility] : 1970 [facility]: [id number] Reason For Visit: Syncope; flu Visit Date: 06/21/2022 15:14:28 [facility] Address: [address] [place] [address] [address] [place] [id number] Phone: Primary Care Provider: Name: Phone: ED Providers: Primary Physician: Clare Pickens MARKETING SEGMENT MANAGER In need of a Physician? Call [facility] Physician Referral Service [phone]. Thank you for choosing [facility] Emergency Department for your care. The examination and treatment you have received in the Emergency Department today have been rendered on an emergency basis onlyand is not intended to be a substitute for complete medical care. You should contact your follow-upphysician as it is important that he or she exam you for any new or remaining problems. If your problem worsens or new symptoms appear and you are unable to arrange prompt follow-up care, call or return to this emergency department Discharge Diagnosis: Influenza A Comment: CHANDLER IGNACIO has been given the following list of follow-up instructions, prescriptions, and patient education materials: Follow-up Instructions: Patient Education Materials: Influenza (Adult) Influenza (Adult) Influenza is also called the flu. It's a viral illness that affects the air passages of your lungs.It's different from the common cold. The flu can easily be passed from one to person to another. Itmay be spread through the air by coughing and sneezing. Or it can be spread by touching the sick person and then touching your own eyes, nose, or mouth. The flu starts 1 to 3 days after you are exposed to the flu virus. It may last??for 1 to 2 weeks but sometimes people feel tired or fatigued for many weeks afterward. You usually don???t need to takeantibiotics unless you are at high risk for or have a complication . This might be an ear or sinus infection or pneumonia. Symptoms of the flu may be mild or severe. They can include extreme tiredness (wanting to stay in bed all day), chills, fevers, muscle aches, soreness with eye movement, headache, and a dry, hacking cough. Antiviral medicine for the flu is available by prescription. If you start taking it within 48 hours, it may help reduce how long your symptoms last and how severe they are. Your provider may do a test to find out if you have influenza and which strain you have. Home care Follow these guidelines when caring for yourself at home: ???Stay away from cigarette smoke, whether yours or other people???s. ???Acetaminophen or ibuprofen will help ease your fever, muscle aches, and headache. Don???t give aspirin to anyone younger than 18 who has the flu. This can cause a serious condition called Simin syndrome. ???Nausea, loose stools, and loss of appetite are common with the flu. Eat light meals. Drink 6 to 8 glasses of liquids every day. Good choices are water, sport drinks, soft drinks without caffeine, juices, tea, and soup. Extra fluids will also help loosen secretions in your nose and lungs. ???Rfxr-mcr-onziayb cold medicines will not make the flu go away faster. But the medicines may helpwith coughing, sore throat, and congestion in your nose and sinuses. Don???t use a decongestant if you have high blood pressure. ???Stay home until your fever has been gone for at least 24 hours without using medicine to reduce fever. Follow-up care Follow up with your healthcare provider, or as advised, if you are not getting better over the nextweek. If you are age 65 or older, talk with your provider about getting a pneumococcal vaccine every 5 years. You should also get this vaccine if you have chronic asthma or COPD. All adults should get a flu vaccine every fall. Ask your provider about this. When to seek medical advice Call your healthcare provider right away if you have the flu and any of these occur: ???Cough with lots of colored mucus (sputum) or blood in your mucus ???Chest pain, shortness of breath, wheezing, or trouble breathing ???Severe headache, or face, neck, or ear pain ???New rash??with fever ???Fever of 100.4??F (38??C)??or higher, or as??directed by your healthcare provider ???Confusion, behavior change, or seizure ???Severe weakness or dizziness ???You get a new??fever or cough after getting better for a few days Also call your provider if you have flu symptoms and have a weakened immune system or are taking medicines that can weaken your immune system. These include steroids and certain anti-inflammatory medicines. ?? 4318-0251 [employer] All rights reserved. This information is not intended as a substitute for professional medical care. Always follow your healthcare professional's instructions. Prescriptions: NEW Medications [facility], [address] [place] [address] [place], [place] [id number], [phone] dextromethorphan-promethazine (dextromethorphan-promethazine 15 mg-6.25 mg/5 mL oral syrup) 5 Milliliter By mouth every 4 hours as needed cough. Refills: 0. Last Dose Next Dose CONTINUED home medications Other Medications cholecalciferol (Vitamin D3) Last Dose Next Dose lisinopril (lisinopril 40 mg oral tablet) Last Dose Next Dose Allergy Info: NKA Medication Information: [facility] has provided you with a complete list of medications post discharge, if you have been instructed to stop taking a medication please ensure you also follow up with this information to your Primary Care Physician. Unless otherwise noted, patient will continue to take medications as prescribed prior to the Emergency Department visit. Any specific questions regardingyour chronic medications and dosages should be discussed with your physician(s) and pharmacist. [facility] [address], [address] [place] [address] [place], [place] [id number], [phone] dextromethorphan-promethazine (dextromethorphan-promethazine 15 mg-6.25 mg/5 mL oral syrup) 5 Milliliter By mouth every 4 hours as needed cough. Refills: 0. Other Medications cholecalciferol (Vitamin D3) lisinopril (lisinopril 40 mg oral tablet) Comment: SANDEE Alejandro RICHARD, have been given the following list of patient education materials, prescriptions, and follow up instructions and has verbalized understanding: Discharge Instructions: Influenza (Adult) Prescriptions: NEW Medications [facility] [address], [address] [place] [address] [place], [place] [id number], [phone] dextromethorphan-promethazine (dextromethorphan-promethazine 15 mg-6.25 mg/5 mL oral syrup) 5 Milliliter By mouth every 4 hours as needed cough. Refills: 0. Last Dose Next Dose CONTINUED home medications Other Medications cholecalciferol (Vitamin D3) Last Dose Next Dose lisinopril (lisinopril 40 mg oral tablet) Last Dose Next Dose Follow-up Information: Patient Signature 06/21/2022 19:12:19 Provider Signature 06/21/2022 19:12:19 * Clare Pickens MARKETING SEGMENT MANAGER: PERFORM, SIGN, VERIFY Event Display: ED Clinical Summary Authored Date: [facility] Emergency Department Depart Summary PERSON INFORMATION Name CHANDLER IGNACIO Age 51 Years 1970 Sex Male PCP Marital Status Phone Visit Id Visit Reason Syncope; flu Specialty Enc Type Emergency Med Service Emergency Room Referred by Discharge Checkout Checkin 06/21/2022 15:14:28 Acuity 2 - Emergent Dispo Type Arrival 06/21/2022 15:14:28 Reg Status Requested LOS 000 03:58 Address: [address] [place] [address] [address] [place] [id number] DIAGNOSIS Influenza A PROVIDER INFORMATION Provider Role Assigned Unassigned Clare Pickens NP ED Provider 06/21/2022 18:45:04 Silvia Bernal SEED CUTTER Nurse 06/21/2022 18:49:18 VITALS INFORMATION Vital Sign Triage Latest Temp Oral Temp Tympanic Temp Intravascular Temp Axillary Temp Rectal 02 Sat 97 % 97 % Respiratory Rate 18 br/min 18 br/min Pulse Rate Peripheral Pulse Rate 126 bpm 126 bpm Apical Heart Rate Blood Pressure 118 mm Hg / 65 mm Hg 118 mm Hg / 65 mm Hg EVENTS INFORMATION Event Name Event Status Request Date/Time Start Date/Time Complete Date/Time Arrive Complete 06/21/2022 15:14:28 06/21/2022 15:14:28 06/21/2022 15:14:28 Document Home Meds Complete 06/21/2022 15:14:28 06/21/2022 18:47:30 06/21/2022 18:47:30 Registration Request 06/21/2022 15:14:28 SureScripts Consent Start 06/21/2022 15:14:28 06/21/2022 15:14:28 Triage Complete 06/21/2022 15:14:28 06/21/2022 15:25:44 06/21/2022 15:25:44 24 Hour Return Request 06/21/2022 15:15:32 Patient Care Request 06/21/2022 15:17:25 Isolation Request 06/21/2022 15:17:25 Lab Not Reviewed 06/21/2022 15:21:39 Specimen Collect Request 06/21/2022 15:21:39 Lab Not Reviewed 06/21/2022 15:22:59 Specimen Collect Request 06/21/2022 15:22:59 Patient Care Request 06/21/2022 15:39:51 Lab Not Reviewed 06/21/2022 17:54:52 06/21/2022 17:54:52 Specimen Collect Start 06/21/2022 17:54:52 06/21/2022 17:54:52 Bed Assign Complete 06/21/2022 18:43:53 06/21/2022 18:43:53 06/21/2022 18:43:53 Health History Complete 06/21/2022 18:43:53 06/21/2022 18:49:08 06/21/2022 18:49:08 PowerNote Req Start 06/21/2022 18:43:53 06/21/2022 19:12:05 Dr Exam Complete 06/21/2022 18:43:53 06/21/2022 18:45:03 06/21/2022 18:45:03 RN Exam Request 06/21/2022 18:43:53 Home Meds Complete Complete 06/21/2022 18:47:30 06/21/2022 18:47:30 06/21/2022 18:47:30 Discharge Request 06/21/2022 19:12:13 LOCATION INFORMATION Arrival Nurse Unit Room Bed 06/21/2022 15:14:28 ER Emergency Dept WR 06/21/2022 18:43:53 ER Emergency Dept PIT 01 ORDERS INFORMATION MEDICAL INFORMATION Allergy Info: NKA Prescriptions Given [facility], [address] [place] [address] [place], [place] [id number], [phone] dextromethorphan-promethazine (dextromethorphan-promethazine 15 mg-6.25 mg/5 mL oral syrup) 5 Milliliter By mouth every 4 hours as needed cough. Refills: 0. Other Medications cholecalciferol (Vitamin D3) lisinopril (lisinopril 40 mg oral tablet) DISCHARGE INFORMATION Discharge Disposition: Discharge Location: DEPART REASON INCOMPLETE INFORMATION PATIENT EDUCATION INFORMATION Instructions: Influenza (Adult) Follow up: PHYSICIAN DOCUMENTATION Emergency department Education note * Clare Pickens MARKETING SEGMENT MANAGER: PERFORM, SIGN, VERIFY Event Display: ED Patient Education Authored Date: Emergency Department Patient Education Materials Name: CHANDLER IGNACIO Current Date: 06/21/2022 19:12:20 : 1970 [facility] [id number] Visit Date: 06/21/2022 15:14:28 Address: [facility] [place] [id number] Phone: Primary Care Provider: Name: Phone: Emergency Department Care Providers: Primary Physician: Clare Pickens MARKETING SEGMENT MANAGER, ED Provider If you had any cultures, lab work not back during your ER visit, or x-rays performed, we ask you tocontact your doctor for final reports. We will attempt to contact you if further instructions are needed. Please return if symptoms worsen, don't improve as expected, or change, as soon as possible. Prescriptions CHANDLER IGNACIO has been given the following prescriptions: ~~PrescriptionStart ~~PreName ~~PrescriptionEnd Home Meds: CHANDLER IGNACIO is on the following home medications: ~~HomeMedStart ~~HmName ~~HomeMedEnd Follow-up Instructions CHANDLER IGNACIO has been given these follow-up instructions: No follow up information was provided. Education Materials Pulmonary Influenza (Adult) Influenza is also called the flu. It's a viral illness that affects the air passages of your lungs.It's different from the common cold. The flu can easily be passed from one to person to another. Itmay be spread through the air by coughing and sneezing. Or it can be spread by touching the sick person and then touching your own eyes, nose, or mouth. The flu starts 1 to 3 days after you are exposed to the flu virus. It may last??for 1 to 2 weeks but sometimes people feel tired or fatigued for many weeks afterward. You usually don???t need to takeantibiotics unless you are at high risk for or have a complication . This might be an ear or sinus infection or pneumonia. Symptoms of the flu may be mild or severe. They can include extreme tiredness (wanting to stay in bed all day), chills, fevers, muscle aches, soreness with eye movement, headache, and a dry, hacking cough. Antiviral medicine for the flu is available by prescription. If you start taking it within 48 hours, it may help reduce how long your symptoms last and how severe they are. Your provider may do a test to find out if you have influenza and which strain you have. Home care Follow these guidelines when caring for yourself at home: ???Stay away from cigarette smoke, whether yours or other people???s. ???Acetaminophen or ibuprofen will help ease your fever, muscle aches, and headache. Don???t give aspirin to anyone younger than 18 who has the flu. This can cause a serious condition called Simin syndrome. ???Nausea, loose stools, and loss of appetite are common with the flu. Eat light meals. Drink 6 to 8 glasses of liquids every day. Good choices are water, sport drinks, soft drinks without caffeine, juices, tea, and soup. Extra fluids will also help loosen secretions in your nose and lungs. ???Gquu-fvs-szjklgt cold medicines will not make the flu go away faster. But the medicines may helpwith coughing, sore throat, and congestion in your nose and sinuses. Don???t use a decongestant if you have high blood pressure. ???Stay home until your fever has been gone for at least 24 hours without using medicine to reduce fever. Follow-up care Follow up with your healthcare provider, or as advised, if you are not getting better over the nextweek. If you are age 65 or older, talk with your provider about getting a pneumococcal vaccine every 5 years. You should also get this vaccine if you have chronic asthma or COPD. All adults should get a flu vaccine every fall. Ask your provider about this. When to seek medical advice Call your healthcare provider right away if you have the flu and any of these occur: ???Cough with lots of colored mucus (sputum) or blood in your mucus ???Chest pain, shortness of breath, wheezing, or trouble breathing ???Severe headache, or face, neck, or ear pain ???New rash??with fever ???Fever of 100.4??F (38??C)??or higher, or as??directed by your healthcare provider ???Confusion, behavior change, or seizure ???Severe weakness or dizziness ???You get a new??fever or cough after getting better for a few days Also call your provider if you have flu symptoms and have a weakened immune system or are taking medicines that can weaken your immune system. These include steroids and certain anti-inflammatory medicines. ?? [id number] [employer] All rights reserved. This information is not intended as a substitute for professional medical care. Always follow your healthcare professional's instructions. Patient Visit Summary: Follow up instructions: Patient Education Materials: Pulmonary Influenza (Adult) Follow-Up Instructions: No follow up information was provided. If you are unable to make a timely appointment with the above doctor, please call [facility] Physician Referral Service at [phone] Prescriptions ~~PrescriptionList I, CHANDLER IGNACIO, have received the above patient education materials/instructions and have verbalized understanding: 06/21/2022 19:12:20 Patient Signature 06/21/2022 19:12:20 Provider Signature Physician Emergency department Note * Clare Pickens MARKETING SEGMENT MANAGER: PERFORM, MODIFY, SIGN, VERIFY Event Display: ED Note-Physician Authored Date: Patient: CHANDLER IGNACIO Age: 51 years Sex: Male : 1970 Associated Diagnoses: None Author: Clare Pickens NP Basic Information Vital signs: Vital Signs 06/21/2022 18:30 [employer] Temperature Temporal Artery 37.1 DegC 06/21/2022 15:20 [employer] Temperature Temporal Artery 38.2 DegC H Peripheral Pulse Rate 126 bpm H* Respiratory Rate 18 br/min Systolic Blood Pressure 118 mm Hg Diastolic Blood Pressure 65 mm Hg 06/21/2022 14:24 [employer] Temperature Temporal Artery 38.4 DegC H Peripheral Pulse Rate 126 bpm H* Respiratory Rate 28 br/min H Systolic Blood Pressure 122 mm Hg Diastolic Blood Pressure 73 mm Hg , Primary Pain Intensity : Primary Pain Intensity 06/21/2022 15:20 [employer] Primary Pain Intensity 0 , Measurements 06/21/2022 15:20 [employer] Height 190 cm Weight 105 kg Weight Source Actual Body Mass Index 29.09 kg/m2 , Oxygen saturation: Basic Oxygen Information 06/21/2022 15:20 [employer] Oxygen Saturation 97 % 06/21/2022 14:24 [employer] Oxygen Saturation 100 % . Time seen: Date & time 06/21/2022 18:49:00. History source: Patient. Arrival mode: Private vehicle, walking. History limitation: None. Additional information:: Chief Complaint from Nursing Triage Note : Chief Complaint Description 06/21/2022 15:20 [employer]ER Chief Complaint Description fever, dizzy, syncopal, sent by [facility] 06/21/2022 14:24 [employer] Chief Complaint Description at 1200 passed out while standing in line, had blurry vision, has had an upper respiratory complaints, coughing, stuffy nose, not sleeping, fatigued feeling, poor apetite, feels weak . History of Present Illness The patient presents with syncope. The onset was 6 hours ago. The course/duration of symptoms is improving. Associated symptoms: fever, chills, headache and dizziness. pt is a 51y/o male. states he was standing in line at [employer] getting lunch felt dizzy and had a syncopal episode. reports Fri he started with fever, fatigue, dizziness, blurry vision, cough, sore throat, nasal drainage and congestion and loss of appetite. he went to the Urgent Care and was sent to the ED via EMS.. Review of Systems Constitutional symptoms: Fever, chills, weakness, fatigue, decreased appetite. Skin symptoms: no rash Eye symptoms: Blurred vision. ENMT symptoms: Sore throat, nasal congestion. Respiratory symptoms: Shortness of breath, cough, no sputum production. Cardiovascular symptoms: Syncope. Gastrointestinal symptoms: no nausea no vomiting. Neurologic symptoms: Headache. Additional review of systems information: All other systems reviewed and otherwise negative. Health Status Allergies: Allergic Reactions (Selected) NKA. Medications: (Selected) Documented Medications Documented Vitamin D3: 0 Refill(s) lisinopril 40 mg oral tablet: 0 Refill(s). Immunizations: Per nurse's notes. Past Medical/ Family/ Social History Medical history Problem List from Nurse's Notes All Problems High blood pressure / SNOMED CT [id number] / Confirmed. Surgical history: Procedure History from [...] Alert. no acute distress. Skin: Warm. dry. pink. intact. Head: Normocephalic. atraumatic. Neck: Supple. trachea midline. Eye: Normal conjunctiva Ears, nose, mouth and throat: Oral mucosa moist. No pharyngeal erythema or exudate. Cardiovascular: No murmur. Normal peripheral perfusion. Tachycardia. Respiratory: Lungs are clear to auscultation. respirations are non-labored. breath sounds are equal. Symmetrical chest wall expansion. Cough: mild and hacking. Musculoskeletal: Normal ROM Neurological: Alert and oriented to person, place, time, and situation. No focal neurological deficit observed. CN II-XII intact. normal sensory observed. normal motor observed. normal speech observed. Psychiatric: Cooperative. appropriate mood & affect. normal judgment. Medical Decision Making Differential Diagnosis: Syncope, dehydration, influenza, covid. Rationale hx. assessment. labs consistent with dehydration. influenza A pos. given 1L NS IV bolus. VS improved. pt reports no further dizziness. improved s/s.. Documents reviewed: Emergency department nurses' notes. Results review: Lab results : Lab View 06/21/2022 17:42 [employer] WBC 8.0 K/uL Nucleated RBCs 0 % RBC 4.55 M/uL Hemoglobin 14.1 g/dL Hematocrit 41.9 % MCV 92.1 fL MCH 31.0 pg MCHC 33.7 g/dL RDW 13.2 % MPV 11.6 fL Platelet 166 K/uL Differential Type Automated Immature Gran % 0.4 % Neutro % 67 % Lymph % 16 % Coffey % 16 % Eos % 0 % Baso % 0 % Neutro # 5.4 K/uL Lymph # 1.3 K/uL Coffey # 1.3 K/uL Eos # 0.0 K/uL Baso # 0.0 K/uL Sodium 137 mmol/L Potassium 3.9 mmol/L Chloride 105 mmol/L CO2 24 mmol/L Anion Gap 8 mmol/L BUN 26 mg/dL H Creatinine 1.2 mg/dL Glucose 117 mg/dL H Calcium 8.7 mg/dL Protein, Total 6.5 g/dL Albumin 3.9 g/dL Alk Phos 72 U/L Bilirubin, Total 0.5 mg/dL AST 35 U/L ALT 31 U/L eGFR(4vMDRD) >60 mL/min/1.73m2 eCrCl(C-Gault) 1.0 mL/min/kg Influenza A RNA POSITIVE Influenza B RNA Negative RSV RNA Negative SARS-CoV-2 (COVID-19) RNA Negative . Procedure Stroke Thrombolysis Time: 06/21/2022 19:10:00 . Patient is:: Not a candidate for TPA because: (see comment) NOT A STROKE. NIH Stroke Scale Date\Time NIH Stroke Scale Assessed: 06/21/2022 19:10:00. Total score: Total score 0. Critical care services delivered? No Impression and Plan Diagnosis Influenza A : HLP06-CG J10.1, Discharge, Emergency medicine, Medical Discharge plan Condition: Improved, Stable. Dispositioned: To home. Prescriptions: Discharge Medications Pharmacy: dextromethorphan-promethazine 15 mg-6.25 mg/5 mL oral syrup (Prescribe): 5 mL, Oral, [id number], PRN: cough, 120 mL, 0 Refill(s). Patient was given the following educational materials: Influenza (Adult). Follow up with: Primary Care Physician, In: as needed. Counseled: Patient, Regarding diagnosis, Regarding diagnostic results, Regarding treatment plan, Regarding prescription, Patient indicated understanding of instructions. [Electronically Signed on 06/21/2022 07:21 PM POWDER BLENDER AND POURER] Clare Pickens NP Nurse Emergency department Note * Silvia Bernal RN: PERFORM Event Display: ED Note-Nursing Authored Date: [id number] ED Document Historical Medications Entered On: 06/21/2022 18:47 [employer] Performed On: 06/21/2022 18:46 [employer] by Silvia Bernal RN ED Medication List Medication List (As Of: 06/21/2022 18:47 [employer]) Normal Order acetaminophen 325 mg/10.15 mL UD Oral Liquid : acetaminophen 325 mg/10.15 mL UD Oral Liquid ; Status: Completed ; Ordered As Mnemonic: acetaminophen ; Simple Display Line: 650 mg, 20.3 mL, Oral, Once ; Ordering Provider: Chino Wolfe NP; Catalog Code: acetaminophen ; Order Dt/Tm: 06/21/2022 14:45 [employer] ; Comment: ALWAYS Communicate Potential Side Effects: Nausea, vomiting, constipation acetaminophen 325 mg/10.15 mL UD Oral Liquid : acetaminophen 325 mg/10.15 mL UD Oral Liquid ; Status: Discontinued ; Ordered As Mnemonic: acetaminophen ; Simple Display Line: 650 mg, 20.3 mL, Oral, Once ; Ordering Provider: Chino Wolfe NP; Catalog Code: acetaminophen ; Order Dt/Tm: 06/21/2022 14:44 [employer] ; Comment: ALWAYS Communicate Potential Side Effects: Nausea, vomiting, constipation acetaminophen 325 mg Tab : acetaminophen 325 mg Tab ; Status: Discontinued ; Ordered As Mnemonic: acetaminophen ; Simple Display Line: 650 mg, 2 tablet(s), Oral, Once ; Ordering Provider: Chino Wolfe NP; Catalog Code: acetaminophen ; Order Dt/Tm: 06/21/2022 14:39 [employer] ; Comment: ALWAYS Communicate Potential Side Effects: Nausea, vomiting, constipation Home Meds cholecalciferol : cholecalciferol ; Status: Documented ; Ordered As Mnemonic: Vitamin D3 ; Simple Display Line: 0 Refill(s) ; Catalog Code: cholecalciferol ; Order Dt/Tm: 06/21/2022 14:25 [employer] lisinopril : lisinopril ; Status: Documented ; Ordered As Mnemonic: lisinopril 40 mg oral tablet ; Simple Display Line: 0 Refill(s) ; Catalog Code: lisinopril ; Order Dt/Tm: 06/21/2022 14:25 [employer] * Justina Teran RN: PERFORM Event Display: ED Note-Nursing Authored Date: ED Patient Rounds Entered On: 06/21/2022 18:33 [employer] Performed On: 06/21/2022 18:33 [employer] by Justina Teran RN Visual Check Visual Check Performed : Yes (Comment: pt updated re: wait and waiting on results [Justina Teran RN - 06/21/2022 18:33 [employer]] ) Justina Teran RN - 06/21/2022 18:33 [employer] * Justina Teran RN: PERFORM Event Display: ED Note-Nursing Authored Date: to infuse NS 1000ml that pt came with from EMS * Justina Teran RN: PERFORM Event Display: ED Note-Nursing Authored Date: ED Triage Entered On: 06/21/2022 15:25 [employer] Performed On: 06/21/2022 15:20 [employer] by Justina Teran RN Reason For Visit Chief Complaint Description : fever, dizzy, syncopal, sent by [facility] Reg STK Was Last Known Well Date and Time Witnessed : N/A Lyn[place] Mode of Arrival : Private vehicle ED Allergies/Home Meds : Document assessment Preferred Language of Patient/Caregiver ED : Moroccan Workman's Comp : No Temperature Temporal Artery : 38.2 DegC(Converted to: 100.8 DegF) (H) Respiratory Rate : 18 br/min Peripheral Pulse Rate : 126 bpm (H*) Systolic Blood Pressure : 118 mm Hg Diastolic Blood Pressure : 65 mm Hg Oxygen Saturation : 97 % Height : 190 cm(Converted to: 6 ft 3 inch(es)) Weight Source : Actual Weight : 105 kg(Converted to: 231.485 pound(s)) Body Mass Index : 29.09 kg/m2 Justina Teran RN - 06/21/2022 15:20 [employer] DCP GENERIC CODE Tracking Acuity : 2 - Emergent Tracking Group : Emergency Department Justina Teran RN - 06/21/2022 15:20 [employer] Primary Pain Intensity : 0 Justina eTran RN - 06/21/2022 15:20 [employer] (As Of: 06/21/2022 15:25 [employer]) Problems(Active) High blood pressure (SNOMED CT :[id number] ) Name of Problem: High blood pressure ; Recorder: Celine Okeefe Clinical Educator; Confirmation: Confirmed ; Classification: Patient Stated ; Code: [id number] ; Contributor System: [employer] ; Last Updated: 06/21/2022 14:27 [employer] ; Life Cycle Date: 06/21/2022 ; Life Cycle Status: Active ; Vocabulary: SNOMED CT Diagnoses(Active) Syncope Date: 06/21/2022 ; Diagnosis Type: Reason For Visit ; Confirmation: Confirmed ; Clinical Dx: Syncope; Classification: Medical ; Clinical Service: Emergency medicine ; Code: PNED ; Probability: 0 ; Diagnosis Code: [id number] Allergies (As Of: 06/21/2022 15:25 [employer]) Allergies (Active) NKA Estimated Onset Date: Unspecified ; Created By: Celine Okeefe Clinical Educator; Reaction Status: Active ; Category: Drug ; Substance: NKA ; Type: Allergy ; Updated By: Celine Okeefe Clinical Educator; Reviewed Date: 06/21/2022 14:42 [employer] Medication List (As Of: 06/21/2022 15:25 [employer]) Normal Order acetaminophen 325 mg Tab : acetaminophen 325 mg Tab ; Status: Discontinued ; Ordered As Mnemonic: acetaminophen ; Simple Display Line: 650 mg, 2 tablet(s), Oral, Once ; Ordering Provider: Chino Wolfe NP; Catalog Code: acetaminophen ; Order Dt/Tm: 06/21/2022 14:39 [employer] ; Comment: ALWAYS Communicate Potential Side Effects: Nausea, vomiting, constipation acetaminophen 325 mg/10.15 mL UD Oral Liquid : acetaminophen 325 mg/10.15 mL UD Oral Liquid ; Status: Discontinued ; Ordered As Mnemonic: acetaminophen ; Simple Display Line: 650 mg, 20.3 mL, Oral, Once ; Ordering Provider: Chino Wolfe NP; Catalog Code: acetaminophen ; Order Dt/Tm: 06/21/2022 14:44 [employer] ; Comment: ALWAYS Communicate Potential Side Effects: Nausea, vomiting, constipation acetaminophen 325 mg/10.15 mL UD Oral Liquid : acetaminophen 325 mg/10.15 mL UD Oral Liquid ; Status: Completed ; Ordered As Mnemonic: acetaminophen ; Simple Display Line: 650 mg, 20.3 mL, Oral, Once ; Ordering Provider: Chino Wolfe NP; Catalog Code: acetaminophen ; Order Dt/Tm: 06/21/2022 14:45 POWDER BLENDER AND POURER ; Comment: ALWAYS Communicate Potential Side Effects: Nausea, vomiting, constipation Home Meds cholecalciferol : cholecalciferol ; Status: Documented ; Ordered As Mnemonic: Vitamin D3 ; Simple Display Line: 0 Refill(s) ; Catalog Code: cholecalciferol ; Order Dt/Tm: 06/21/2022 14:25 POWDER BLENDER AND POURER lisinopril : lisinopril ; Status: Documented ; Ordered As Mnemonic: lisinopril 40 mg oral tablet ; Simple Display Line: 0 Refill(s) ; Catalog Code: lisinopril ; Order Dt/Tm: 06/21/2022 14:25 POWDER BLENDER AND POURER General Travelled or Contact in last month? (ED) : No travel and no contact with ill traveler in the last month Status : N/A Child/Parent Domestic Concerns : None Chemotherapy Med. Currently Taking : No Little interest/pleasure in doing things? : No Feeling down, depressed, or hopeless? : No Justina Teran RN - 06/21/2022 15:20 POWDER BLENDER AND POURER Severe Sepsis Triage Screening Tool Does the Patient Have Any Three of the Following : Suspected or known infection, Heart rate > 90/min, Baseline change of mental status/generalized weakness Three or more qualifies intervention : Yes Is the Pt's SBP < 90 or MAP < 65 mmHg? : No Justina Teran RN - 06/21/2022 15:20 POWDER BLENDER AND POURER Novel Coronavirus Assessment Novel Coronavirus Current Fever : Yes Novel Coronavirus Fever 14 days : No Novel Coronavirus Exposed COVID 14 days : No Novel Coronavirus Previous Outside Labs : No Novel Coronavirus Received Vaccine : Yes Novel Coronavirus Vaccine Type : Pfizer Novel Coronavirus Completed Vac Series : Yes Novel Coronavirus Booster Vaccine Received : No Justina Teran RN - 06/21/2022 15:20 [employer]OWDER BLENDER AND POURER Patient Care team information Care Team Personnel Name: Jb Aquino MD Position: ZZ FAX ONLY - MD NOT ON STAFF Member Role: Primary Care Physician Address: Address: [address] [place] [address] [place] [address] [place] Name: Silvia Bernal RN Position: P4 ED Nurse Member Role: ED Nurse Name: Clare Pickens MARKETING SEGMENT MANAGER Position: P4 ED Nurse Practitioner Member Role: Attending Physician Address: Address: [address] [place] [address]
--- OUTSIDE RECORDS SUMMARY | 2024-07-23 23:48 | XMS_ITS | Referral Summary ---
Author Organization [facility] Address [address] [place] [address] Care Team Providers Care 1St Pressman Name Role Phone Jb Aquino MD Primary Care Provider [phone] Source Comments [facility],non-owned Affiliates and Associated Physician Practices is amultiple site organization consisting of ambulatory clinics and hospital sitesin [place], [place], [place] and [place]. This disclosure is being madepursuant to the Care Everywhere program and may not contain all information available regarding this patient. Last updated 18.[facility] Social History Tobacco Use Types Packs/Day Years Used Date Smoking Tobacco: Never Assessed Sex and Gender Information Value Date Recorded Sex Assigned at Not on file Gender Identity Not on file Sexual Orientation Not on file Plan of Treatment Not on file Administered Medications Care Teams 1St Pressman Relationship Specialty Start Date End Date Jb Aquino MD [address] [facility] [address] [place] [id number] PCP - General Family Medicine 11/14/16
--- OUTSIDE RECORDS SUMMARY | 2024-07-23 23:48 | XMS_ITS | Clinical Summary ---
Author Organization [facility] Address [address] [place] [address] Care Team Providers Care Yard Goods Salesperson Name Role Phone Jb Aquino MD Primary Care Provider [phone] Source Comments [facility],non-[facility] Affiliates and Associated Physician Practices is amultiple site organization consisting of ambulatory clinics and hospital sitesin [place], [place], [place] and [place]. This disclosure is being madepursuant to the Care Everywhere program and may not contain all information available regarding this patient. Last updated 18.[facility] [employer] Social History Tobacco Use Types Packs/Day Years Used Date Smoking Tobacco: Never Assessed Sex and Gender Information Value Date Recorded Sex Assigned at Not on file Gender Identity Not on file Sexual Orientation Not on file Plan of Treatment Health Maintenance Due Date Last Done Comments COLOGUARD (AGES 45-75) - COL ON CA SCREENING 1972 COLON MONITORING 1972 COLONOSCOPY - COLON CA SCREENING 1972 CT COLONOGRAPHY - COLON CA SCREENING 1972 Colorectal Cancer Screening 1972 FIT - COLON CA SCREENING 1972 FLEX SIG - COLON CA SCREENING 1972 LIPID TESTING 1972 HIV SCREENING 1987 HEPATITIS C SCREENING 07/29/1990 DTAP/TDAP/TD VACCINES (1 - Tdap) 1991 HEPATITIS B VACCINE (1 of 3 - 19+ 3-dose series) 1991 ZOSTER VACCINE (1 of 2) 2022 DEPRESSION SCREENING 07/14/2023 COVID-19 VACCINE ( - 2023-2 5 season) 2024 INFLUENZA VACCINE (#1) 2024 HIB VACCINE Aged Out No longer eligi ble based on patient's age to complete this topic HPV VACCINE Aged Out No longer eligi ble based on patient's age to complete this topic MENINGOCOCCAL VACCINE Aged Out No rupali cristel eligible based on patient's age to complete this topic PNEUMOCOCCAL VACCINE Aged Out No long er eligible based on patient's age to complete this topic Care Teams Yard Goods Salesperson Relationship Specialty Start Date End Date Jb Aquino MD [address] [place] [address] [place] [address] PCP - General Family Medicine 11/14/16
--- OUTSIDE RECORDS SUMMARY | 2024-07-23 23:48 | XMS_ITS | Referral Summary ---
Author Organization [facility] Address [address] [place] [address] Phone Care Team Providers Care Order Checker Packer Processer Name Role Phone Jb Aquino MD Primary Care Provider [phone] Allergies No known active allergies Medications lisinopriL (PRINIVIL,ZESTRI L) 40 mg tablet Take 1 tablet (40 mg total) by mouth daily 02/18/2024 Active doxycycline (VIBRAMYCIN) 100 mg capsule Take 1 tablet/caps ule (100 mg total) by mouth 2 (two) times a day 20 capsule 04/14/2024 Active Active Problems No known active problems Social History Tobacco Use Types Packs/Day Years Used Date Smoking Tobacco: Never Assessed Personal Safety Answer Date Recorded Have you ever been in or are you currently in a harmful physical or emotional relationship or is someone making you feel afraid or unsafe? Denies 04/14/2024 Sex and Gender Information Value Date Recorded Sex Assigned at Not on file Legal Sex Male 7:20 PM CDT Gender Identity Not on file Sexual Orientation Not on file Last Filed Vital Signs Vital Sign Reading Time Taken Comments Blood Pressure 120/70 04/14/2024 11:28 AM CDT Pulse 76 04/14/2024 11:28 AM CDT Temperature 36.6 ??C (97.8 ??F) 04/14/2024 10:06 AM C DT Respiratory Rate 16 04/14/2024 11:28 AM CDT Oxygen Saturation 100% 04/14/2024 11:28 AM CDT Inhaled Oxygen Concentration - - Weight 117 kg (258 lb) 04/14/2024 10:06 AM CDT Height 190.5 cm (6' 3 ) 04/14/2024 10:06 AM CDT Body Mass Index 32.25 04/14/2024 10:06 AM CDT Plan of Treatment Not on file Additional Health Concerns Infection Onset Date Last 

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
--- OUTSIDE RECORDS SUMMARY | 2024-07-23 23:48 | XMS_ITS | Clinical Summary ---
Author Organization [facility] Address [address] [place] [address] Phone Care Team Providers Care Family Resource Management Professor Name Role Phone Jb Aquino MD Primary Care Provider [phone] Allergies No known active allergies Medications lisinopriL [...] on file Sexual Orientation Not on file Obstetrics History Last Filed Vital Signs Vital Sign Reading [...] 04/14/2024 10:06 AM CDT Plan of Treatment Health Maintenance Due Date Last Done Comments Colon Cancer Screening-Colonoscopy 1972 Depression Screening 1972 Hepatitis C Screening 1972 Prostate Cancer Screening-PSA 1972 DTaP/Tdap/Td Vaccine (6 - Tdap) 03/03/1987 03/02/1987, 02/25/1983, 10/31/1977, Additional history exists Hepatitis B Screening 1990 Regular Well Visit/Exam 18-64 1990 Zoster Vaccine (1 of 2) 2022 Influenza Vaccine (#1) 2024 Pneumococcal vaccine <65 Aged Out No longer eligible based on patient's age to complete this topic Additional Health Concerns Infection Onset Date Last 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
--- OUTSIDE RECORDS SUMMARY | 2024-07-23 23:48 | XMS_ITS | Encounter Summary ---
Author Organization [facility] Address [address] [place] [address] Care Team Providers Care Field Account Director Name Role Phone Jb Aquino MD Primary Care Provider [phone] Reason for Visit * Reason Comments Imm Inj PPD Encounter Details Date Type Department Care Team (Late st Contact Info) Description 11/14/2016 2:40 PM CDT Office Visit [facility] AT [address] [address] Provider, [facility] Exp [facility] Screening-pulmonary TB (Primary Dx) Social History Tobacco Use Types Packs/Day Years Used Date Smoking Tobacco: Never Assessed Sex and Gender Information Value Date Recorded Sex Assigned at Not on file Gender Identity Not on file Sexual Orientation Not on file documented as of this encounter Progress Notes * Hansa Pham APRN-CNP - 11/14/2016 2:51 PM CDT PPD admin, left flexor. Aware of time frame to return to have PPD read, and time frame written on PPD admin form. documented in this encounter Plan of Treatment Not on file documented as of this encounter Procedures Procedure Name Priority Date/Time Associated Diagnosis Comments SKIN TEST PPD - POINT OF CARE Routine 11/14/2016 Screening-pulmonary TB documented in this encounter Results * SKIN TEST PPD - POINT OF CARE (11/14/2016) PPD neg MISCELLANEOUS SAMPLE S / Unknown 11/14/2016 Hansa Pham [employer] COUNSEL[employer] [facility] - POINT OF CARE ORDERABLES documented in this encounter Visit Diagnoses Diagnosis Screening-pulmonary TB- Primary Screening examination for pulmonary tuberculosis documented in this encounter Administered Medications Administered Medications Medication Order MAR Action Action Date Dose Rate Site PPD Intradermal Given 11/14/2016 0.1 mL Left Forearm documented in this encounter Care Teams Field Account Director Relationship Specialty Start Date End Date Jb Aquino MD [address] [facility] [address] [place] [address] PCP - General Family Medicine 11/14/16 documented as of this encounter
--- OUTSIDE RECORDS SUMMARY | 2024-07-23 23:48 | XMS_ITS | Patient Health Summary ---
Author Organization [facility] Address [address] [place] [address] Care Team Providers Care Car Refinisher Name Role Phone Jb Aquino MD Primary Care Provider [phone] Note from [facility],non-owned Affiliates and Associated Physician Practices is amultiple site organization consisting of ambulatory clinics and hospital sitesin [place], [place], [place]. This disclosure is being madepursuant to the Care Everywhere program and may not contain all information available regarding this patient. 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
--- OUTSIDE RECORDS SUMMARY | 2024-07-23 23:48 | XMS_ITS | Encounter Summary ---
Author Organization [facility] Healthcare Address [address] [place] [address] Care Team Providers Care Tire Technician Name Role Phone Jb Aquino MD Primary Care Provider Reason for Visit * Reason Comments Wound Check Encounter Details Date Type Department Care Team (Late st Contact Info) Description 04/14/2024 11:12 AM CDT - 04/14/2024 12:31 PM CDT Emergency [facility] Emergency Department [address] [place] [id number] Yefri Hamlin MD [facility] [place] [address] Abscess of thigh (Primary Dx) Discharge Disposition: Discharge to home or self care Social History Tobacco Use Types Packs/Day Years [...] on file documented as of this encounter Last Filed Vital Signs Vital Sign Reading [...] Mass Index 32.25 04/14/2024 10:06 AM CDT documented in this encounter Discharge Instructions * Discharge Instructions* Yefri Hamlin MD - 04/14/2024 12:15 PM CDT Remove packing 24 hours, apply antibiotic oint tid * Attachments The following attachments cannot be sent through Care Everywhere. * ABSCESS (INCISION & DRAINAGE) (BULGARIAN) documented in this encounter Medications at Time of Discharge doxycycline (VIBRAMYCIN) 100 mg capsule Take 1 tablet/capsul e (100 mg total) by mouth 2 (two) times a day 20 capsule 04/14/2024 lisinopriL (PRINIVIL,ZESTRIL ) 40 mg tablet Take 1 tablet (40 mg total) by mouth daily 02/18/2024 documented as of this encounter Ordered Prescriptions Prescription Sig Dispense Quantity Refills Last Filled Start Date End Date doxycycline (VIBRAMYCIN) 100 mg capsule Take 1 tablet/capsu le (100 mg total) by mouth 2 (two) times a day 20 capsule 04/14/2024 documented in this encounter Discharge Disposition Disposition Code Departure Means Destination Comment s Discharge to home or self care documented in this encounter ED Notes * Yefri Hamlin MD - 04/14/2024 11:40 AM CDT HPI Chief Complaint Patient presents with ??? 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 The patient has had about 2 weeks of an increasing sore and boil on his anterior right thigh started off as an inflamed hair follicle. Patient has no fever chills no systemic symptoms no nausea vomiting no abdominal pain no change in feeling in thehands or feet Patient History: There are no problems to display for this patient. No past medical history on file. History reviewed. No pertinent surgical history. No family history on file. Social History Tobacco Use ??? Smoking status: None ??? Smokeless tobacco: None Substance and Sexual Activity ??? Alcohol use: None ??? Drug use: None ??? Sexual activity: None Social History Social History Narrative ??? Not on file Review of Systems Review of Systems Constitutional: Negative. Negative for diaphoresis, fatigue and fever. HENT: Negative. Eyes: Negative. Respiratory: Negative. Cardiovascular: Negative. Gastrointestinal: Negative. Endocrine: Negative. Genitourinary: Negative. Musculoskeletal: Negative. Skin: Positive for wound. Allergic/Immunologic: Negative. Neurological: Negative. Hematological: Negative. Physical Exam ED Triage Vitals [04/14/24 1006] Temp Pulse Resp BP SpO2 36.6 ??C (97.8 ??F) 86 16 157/93 100 % Temp src Heart Rate Source Patient Position BP Location FiO2 (%) Temporal -- -- -- -- Height Height Method Weight Weight Method 1.905 m (6' 3 ) Stated 117 kg (258 lb) Stated Physical Exam Vitals and nursing note reviewed. Constitutional: General: He is not in acute distress. Appearance: Normal appearance. He is not ill-appearing, toxic-appearing or diaphoretic. HENT: Head: Normocephalic. Nose: Nose normal. Eyes: Extraocular Movements: Extraocular movements intact. Conjunctiva/sclera: Conjunctivae normal. Pupils: Pupils are equal, round, and reactive to light. Cardiovascular: Rate and Rhythm: Normal rate and regular rhythm. Pulmonary: Effort: Pulmonary effort is normal. Breath sounds: Normal breath sounds. Abdominal: General: Abdomen is flat. Palpations: Abdomen is soft. Musculoskeletal: General: No swelling, tenderness, deformity or signs of injury. Normal range of motion. Cervical back: Normal range of motion and neck supple. Right lower leg: No edema. Left lower leg: No edema. Skin: General: Skin is warm and dry. Capillary Refill: Capillary refill takes less than 2 seconds. Findings: Lesion present. Comments: Patient has a 4 x 4 cm pustule with crusting skin over it is not however open or draininghas surrounding erythema proximally 8 cm around please see photo Neurological: General: No focal deficit present. Mental Status: He is alert and oriented to person, place, and time. Mental status is at baseline. Psychiatric: Mood and Affect: Mood normal. Thought Content: Thought content normal. MDM Medical Decision Making Risk Prescription drug management. ED Course as of 04/14/246 Time: 04/14 1216 Comment: Patient is in a hurry she has a an appointment with the divorce court at 2 He has trouble swallowing pills but he will try and get the doxycycline down as soon as he is finished with the fan balancer he had 2 g of Rocephin IV his labs are okay By: Yefri Hamlin MD Final diagnoses: None Yefri Hamlin MD 04/14/24 1145 * Sapna Beltre RN - 04/14/2024 10:05 AM CDT Pt to ED for c/o a wound check. Pt reports he has a boil on his right upper leg x 2 weeks. Pt was seen at and advised to come to ED for further evaluation. documented in this encounter Miscellaneous Notes * Result Encounter Note - Lizeth Baker PA - 04/14/2024 12:31 PM CDT Started on doxycycline, no change needed * Result Encounter Note - Kerwin Azul PA - 04/14/2024 12:31 PM CDT Final report shows susceptible to doxycycline. No change in treatment. Sent patient a note in MyChart. * ED Procedure Note - Yefri Hamlin MD - 04/14/2024 11:45 AM CDTAssociated Order(s): Incision and Drainage Procedure Incision and Drainage Date/Time: 04/14/2024 11:45 AM Performed by: Yefri Hamlin MD Authorized by: Yefri Hamlin MD RN Notified of Procedure: yes Informed consent: Risks, benefits, alternatives discussed and patient/merchandising representative/guardian agrees and accepts Patient's stated name/ matches armband: Yes Consent form signed, dated, timed; matches correct patient, intended procedure and site: Yes Imaging: Pertinent imaging reviewed, correctly oriented and match to patient identifiers Lab/Diag test results: N/a Supplies, devices and special equipment are available: n/a Site/side marked: n/a Type: Abscess Location: Lower extremity Lower extremity location: R leg Skin preparation: Betadine Sedation type: Anxiolysis Anesthesia method: Local infiltration Local anesthetic: Bupivacaine 0.5% Needle aspiration: no Incision types: Single straight and stab incision Incision depth: Subcutaneous Scalpel blade: 11 Wound management: Probed and deloculated Drainage: Purulent Drainage amount: Moderate Wound treatment: Wound left open Packing materials: 1/2 in gauze Patient tolerance of procedure: Tolerated with difficulty All guidewires, needles, sponges or other items are accounted for: yes Any special post procedure monitoring, testing or other considerations: n/a All specimens identified, labeled and matched to patient identification: n/a Responsible republican for transporting specimen(s) to lab determined: n/a Yefri Hamlin MD 04/14/24 1147 documented in this encounter Plan of Treatment Not on file documented as of this encounter Procedures Procedure Name Priority Date/Time Associated Diagnosis Comments MA INCISION & DRAINAGE ABSCESS SIMPLE/SINGLE Routine 04/14/2024 11:45 AM CDT EGFR STAT 04/14/2024 11:42 AM CDT DIFFERENTIAL AUTO STAT 04/14/2024 11: 42 AM CDT AEROBIC CULTURE AND GRAM STAIN Routine 04/14/2024 11:42 AM CDT CBC WITH AUTO DIFFERENTIAL STAT 04/14/2024 11:42 AM CDT COMPREHENSIVE METABOLIC PANEL STAT 04/14/2024 11:42 AM CDT documented in this encounter Results * MA INCISION & DRAINAGE ABSCESS SIMPLE/SINGLE (04/14/2024 11:45 AM CDT) Narrative Yefri Hamlin MD - 04/14/2024 11:45 AM CDT Yefri Hamlin MD ? 04/14/2024 11:47 AM Incision and Drainage Date/Time: 04/14/2024 11:45 AM Performed by: Yefri Hamlin MD Authorized by: Yefri Hamlin MD ?? RN Notified of Procedure: yes ?? Informed consent: ??Risks, benefits, alternatives discussed and patient/merchandising representative/guardian agrees and accepts Patient's stated name/ matches armband: ??Yes Consent form signed, dated, timed; matches correct patient, intended procedure and site: ??Yes Imaging: ??Pertinent imaging reviewed, correctly oriented and match to patient identifiers Lab/Diag test results: ??N/a Supplies, devices and special equipment are available: n/a ?? Site/side marked: n/a ?? Type: ??Abscess Location: ??Lower extremity Lower extremity location: ??R leg Skin preparation: ??Betadine Sedation type: ??Anxiolysis Anesthesia method: ??Local infiltration Local anesthetic: ??Bupivacaine 0.5% Needle aspiration: no ?? Incision types: ??Single straight and stab incision Incision depth: ??Subcutaneous Scalpel blade: ??11 Wound management: ??Probed and deloculated Drainage: ??Purulent Drainage amount: ??Moderate Wound treatment: ??Wound left open Packing materials: ??1/2 in gauze Patient tolerance of procedure: ??Tolerated with difficulty All guidewires, needles, sponges or other items are accounted for: yes ?? Any special post procedure monitoring, testing or other considerations: n/a ?? All specimens identified, labeled and matched to patient identification: n/a ?? Responsible republican for transporting specimen(s) to lab determined: n/a ?? us Yefri Hamlin MD IN CLINIC/BEDSIDE ORDERABLE S Final Result * eGFR (04/14/2024 11:42 AM CDT) eGFR 88 >=60 mL/min/1. 73 m2 Comment: Interpretive Data Reference Interval Normal ?>/= 90 mL/min/1.73m2 Mildly decreased* ? 60 - 89 mL/min/1.73m2 Mildly to moderately decreased ?45 - 59 mL/min/1.73m2 Moderately to severely decreased ??30 - 44 mL/min/1.73m2 Severely decreased ?15 - 29 mL/min/1.73m2 Kidney Failure ?< 15 ??mL/min/1.73m2 *Relative to young adult level Estimated glomerular filtration rate is determined by the 2020 CKD-EPI equation recommended by the National Kid[employer] (A Unifying Approach to GFR Estimation: Recommendations of the NKF-ASK Task Force on Reassessing the Inclusion of Race in Diagnosing Kidney Disease, JASN 2020). The CKD-EPI equation should not be used for patients with unstable renal function and has not been validated in children and those over 70. Current interpretive data was last reviewed 2021. Blood 04/14/2024 11:4 2 AM CDT 04/14/2024 11:45 AM CDT us Yefri Hamlin MD LAB BLOOD ORDERABLES Final Result [facility] [place]) 1 [facility] Department [place] [address] * (ABNORMAL) Differential, auto (04/14/2024 11:42 AM CDT) Neutrophil abs 7.3(H) 1.5 - 6.5 K/cumm Imm gran abs 0.1 0.0 - 0.1 K/cumm [facility] ([place]) Lymphocyte abs 3.0 0.8 - 3.3 K/cumm [facility] ([place]) Monocyte abs 1.5(H) 0.2 - 0.8 K/cumm [facility] ([place]) Eosinophil abs 0.1 0.0 - 0.5 K/cumm [facility] ([place]) Basophil abs 0.1 0.0 - 0.1 K/cumm [facility] ([place]) Neutrophil pct 60.8 % [facility] ([place]) Comment: Interpretive Data Percent cell count reference ranges are not reported, since discordance with absolute values may lead to misinterpretation of CBC data. Current Interpretive Data was last revised on 2017. Imm gran pct 0.6 % [facility] ([place]) Comment: Interpretive Data Percent cell count reference ranges are not reported, since discordance with absolute values may lead to misinterpretation of CBC data. Current Interpretive Data was last revised on 2017. Lymphocyte pct 25.2 % [facility] ([place]) Comment: Interpretive Data Percent cell count reference ranges are not reported, since discordance with absolute values may lead to misinterpretation of CBC data. Current Interpretive Data was last revised on 2017. Monocyte pct 12.2 % [facility] ([place]) Comment: Interpretive Data Percent cell count reference ranges are not reported, since discordance with absolute values may lead to misinterpretation of CBC data. Current Interpretive Data was last revised on 2017. Eosinophil pct 0.8 % [facility] ([place]) Comment: Interpretive Data Percent cell count reference ranges are not reported, since discordance with absolute values may lead to misinterpretation of CBC data. Current Interpretive Data was last revised on 2017. Basophil pct 0.4 % [facility] ([place]) Comment: Interpretive Data Percent cell count reference ranges are not reported, since discordance with absolute values may lead to misinterpretation of CBC data. Current Interpretive Data was last revised on 2017. Blood 04/14/2024 11:4 2 AM CDT 04/14/2024 11:45 AM CDT us Yefri Hamlin MD LAB BLOOD ORDERABLES Final Result [facility] ([place]) 1 [facility] Department [place] [address] * (ABNORMAL) Aerobic culture and gram stain Abscess Thigh, right (04/14/2024 11:42 AM CDT) Direct Specimen Exam Stain: Moderate polymorphonuclear leukocytes seen. Rare Gram Positive Cocci Slide reviewed and direct smear was updated. Comment:Testing performed by : [facility], [address] [place] [address]., [id number] Report Final Report: Moderate Staphylococcus aureus Methicillin resistant (MRSA) by penicillin binding protein 2a (PBP2a) testing. (.) [facility] ([place]) Comment:Testing performed by : [facility], [address] [place] [address]., [id number] Organism STAPHYLOCOCCUS AUREUS [facility] ([place]) Abscess (Thigh, right) 04/14/2024 11:42 AM CDT 04/14/2024 2:05 PM CDT Narrative [facility] ([place]) - 04/26/2024 1:21 PM CDT Specimen received on an ESwab. Testing performed by [facility] ([phone]) Specimens submitted from normally sterile body sites will have all bacterial morphotypes identified. ??Specimens that contain grossly mixed teofilo and/or are from body sites that are not normally sterile will be examined for Staphylococcus aureus, Pseudomonas aeruginosa, beta-hemolytic strep, vancomycin-resistant Enterococcus and fungus. ??If any of these are isolated, the organism will be reported. Current interpretive data was last revised on 2016. Organism Antibiotic Method Susceptibility Staphylococcus aureus Vancomycin INTERPRETATION Susceptible Staphylococcus aureus Ceftaroline INTERPRETATION Susceptible Staphylococcus aureus Trimethoprim with Sulfamethoxazole INTERPRETATION Susceptible Staphylococcus aureus Linezolid INTERPRETATION Susceptible Staphylococcus aureus Doxycycline INTERPRETATION Susceptible Staphylococcus aureus Clindamycin INTERPRETATION Susceptible Staphylococcus aureus Erythromycin INTERPRETATION Resistant Staphylococcus aureus Oxacillin INTERPRETATION Resistant Staphylococcus aureus Cefazolin INTERPRETATION Resistant Staphylococcus aureus Ceftriaxone INTERPRETATION Resistant eYfri Hamlin MD LAB MICROBIOLOGY - GENERAL ORDERABLES Final Result [facility] ([place]) 1 [facility] Department [place] [address] * Comprehensive metabolic panel (04/14/2024 11:42 AM CDT) Sodium 137 135 - 145 mmol/L Potassium, pl 4.4 3.3 - 4.9 mmol/L [facility]) Chloride 102 97 - 110 mmol/L [facility] ([place]) CO2 24 22 - 32 mmol/L [facility] ([place]) Anion gap 11 2 - 15 mmol/L [facility] ([place]) BUN 14 6 - 25 mg/dL [facility] ([place]) Creatinine 1.03 0.80 - 1.30 mg/dL [facility] ([place]) Glucose 95 70 - 199 mg/dL [facility] ([place]) Comment: Interpretive Data Fasting glucose >/= 126 mg/dl is diagnostic for diabetes. ?? Fasting is defined as no caloric intake for at least 8 hours. Fasting glucose between 100 mg/dl to 125 mg/dl is diagnostic of prediabetes. In a patient with classic symptoms of hyperglycemia or hyperglycemic crisis, a random glucose >/= 200 mg/dl is diagnostic for diabetes. In the absence of unequivocal hyperglycemia, results should be confirmed by repeat testing. The classification and Diagnosis of Diabetes Diabetes Care 202; 46: S19-S40. Current interpretive data was last revised 2022. Calcium 9.8 8.5 - 10.3 mg/dL [facility]) Bilirubin, total 0.6 0.1 - 1.2 mg/dL [facility] ([place]) Protein, pl 6.8 6.5 - 8.5 g/dL [facility] ([place]) Albumin 4.2 3.5 - 5.0 g/dL [facility] ([place]) Alk phos 81 40 - 130 Units/L [facility] ([place]) ALT 16 7 - 55 Units/L [facility] ([place]) AST 14 10 - 50 Units/L [facility] ([place]) Blood 04/14/2024 11:4 2 AM CDT 04/14/2024 11:45 AM CDT us Yefri Hamlin MD LAB BLOOD ORDERABLES Final Result [facility] ([place]) 1 [facility] [place] [address] * (ABNORMAL) CBC with auto differential (04/14/2024 11:42 AM CDT) WBC 12.0(H) 3.8 - 9.9 K/cumm Hgb 14.6 13.0 - 17.5 g/dL [facility] ([place]) Hct 43.4 38.9 - 50.3 % [facility] ([place]) Plt 217 150 - 400 K/cumm [facility] ([place]) MPV 10.7 9.1 - 12.3 fL [facility] ([place]) RBC 4.70 4.30 - 5.80 M/cumm [facility] ([place]) MCV 92.3 81.3 - 96.4 fL [facility] ([place]) MCH 31.1 27.1 - 33.3 pg [facility] ([place]) MCHC 33.6 32.3 - 35.7 g/dL [facility] ([place]) RDW CV 13.0 11.1 - 14.9 % [facility] ([place]) RDW SD 43.8 35.7 - 48.1 fL [facility] ([place]) NRBC abs 0.00 0.00 - 0.01 K/cumm [facility] ([place]) Blood 04/14/2024 11:4 2 AM CDT 04/14/2024 11:45 AM CDT us Yefri Hamlin MD LAB BLOOD ORDERABLES Final Result [facility] ([place]) 1 [facility] [place] [address] documented in this encounter Visit Diagnoses Diagnosis Abscess of thigh- Primary Cellulitis and abscess of leg, except foot documented in this encounter Administered Medications Inactive Administered Medications - up to 3 most recent administrations Medication Order MAR Action Action Date Dose Rate Site BUPivacaine (MARCAINE) 0.5 % (5 mg/mL) preservative free injection 75 mg 75 mg (15 mL), infiltration, Once, On Fri04/14/24 at 1125, For 1 dose Given by Other 04/14/2024 11:29 AM CDT 75 mg cefTRIAXone (ROCEPHIN) 2,000 mg/20 mL in sterile water (premix) 2,000 mg 2,000 mg, intravenous, at 240 mL/hr, Administer over 5 Minutes, Every 24 hours scheduled, First dose on Fri04/14/24 at 1126, Indications: Skin/Soft Tissue InfectionIndications:Skin/ Soft Tissue Infection Given 04/14/2024 11:46 AM CDT 2,000 mg 240 mL/hr ketorolac (TORADOL) 30 mg/mL injection 30 mg 30 mg, intravenous, Once, On Fri04/14/24 at 1126, For 1 dose, For Adult IV push, administer over 15 seconds Given 04/14/2024 11:46 AM CDT 30 mg documented in this encounter Active and Recently Administered Medications Times are shown in CDT. Scheduled Medication Order 04/12/2024 04/13/2024 04/14/2024 BUPivacaine (MARCAINE) 0.5 % (5 mg/mL) preservative free injection 75 mg (COMPLETED) 75 mg (15 mL), infiltration, Once, On Fri04/14/24 at 1125, For 1 dose 1129 (Given by Other - Provider: Kary Perez RN - Comment: Given by ERP) cefTRIAXone (ROCEPHIN) 2,000 mg/20 mL in sterile water (premix) 2,000 mg 2,000 mg, intravenous, at 240 mL/hr, Administer over 5 Minutes, Every 24 hours scheduled, First dose on Fri04/14/24 at 1126, Indications: Skin/Soft Tissue Infection 1146 (Given - Provid er: Kary Perez RN) ketorolac (TORADOL) 30 mg/mL injection 30 mg (COMPLETED) 30 mg, intravenous, Once, On Fri04/14/24 at 1126, For 1 dose, For Adult IV push, administer over 15 seconds 1146 (Given - Provid er: Kary Perez RN) documented in this encounter Care Teams Tire Technician Relationship Specialty Start Date End Date Jb Aquino MD [address] [facility] [place] [address] PCP - General Family Medicine 04/14/24 documented as of this encounter
--- OUTSIDE RECORDS SUMMARY | 2024-07-23 23:48 | XMS_ITS | Encounter Summary ---
Author Organization [facility] Healthcare Address [address] [place] [id number] Care Team Providers Care Rn Team Leader Name Role Phone Jb Aquino MD Primary Care Provider Reason for Visit * Reason Comments Abscess Bump on top of right thigh. It's been present for 2 weeks. Painful to touch and he thinks it may be fluid filled. Encounter Details Date Type Department Care Team (Late st Contact Info) Description 04/14/2024 8:45 AM CDT Office Visit [facility] [place] [address] [place] [address] Shellie Santizo, [employer]MENT ANALYST [address] [place] [address] Abscess (Primary Dx) Social History Tobacco Use Types [...] Sign Reading Time Taken Comments Blood Pressure 140/82 04/14/2024 8:23 AM CDT Pulse 95 04/14/2024 8:23 AM CDT Temperature 36.6 ??C (97.8 ??F) 04/14/2024 8:23 AM CD T Respiratory Rate 18 04/14/2024 8:23 AM CDT Oxygen Saturation 99% 04/14/2024 8:23 AM CDT Inhaled Oxygen Concentration - - Weight 117 kg (258 lb) 04/14/2024 8:23 AM CDT Height 190.5 cm (6' 3 ) 04/14/2024 8:23 AM CDT Body Mass Index 32.25 04/14/2024 8:23 AM CDT documented in this encounter Patient Instructions * Patient Instructions* Shellie Santizo NP - 04/14/2024 8:45 AM CDT Go to ER for further evaluation documented in this encounter Progress Notes * Shellie Santizo NP - 04/14/2024 8:45 AM CDT Images from the original note were not included. Subjective/Objective Patient ID: Karthik Venegas is a 53 y.o. male. Chief Complaint Abscess (Bump on top of right thigh. It's been present for 2 weeks. Painful to touch and he thinks it may be fluid filled.) (Bump on top of right thigh. It's been present for 2 weeks. Painful to touch and he thinks it may be fluid filled.) Pt presents to with c/o boil to the right thigh for the past 2 weeks. It is getting bigger and more painful. OTC meds tried-none. Denies SOB, nausea, vomiting, fever. Pt is drinking plenty of fluids. He denies pain in the rest of the leg. The boil has not drained. Abscess Review of Systems All systems reviewed and are negative or non contributory for this patient's presentation today other than as stated in the HPI. Physical Exam Vitals reviewed. Constitutional: General: He is not in acute distress. Appearance: He is not ill-appearing or toxic-appearing. HENT: Head: Normocephalic. Cardiovascular: Rate and Rhythm: Normal rate. Pulmonary: Effort: Pulmonary effort is normal. No respiratory distress. Skin: General: Skin is warm and dry. Comments: 3 x4 cm of fluctuance with a total indurated, erythematous area of about 8-9 cm. Ring of peeling around area of fluctuance. no streaking or fever Neurological: General: No focal deficit present. Mental Status: He is alert and oriented to person, place, and time. Psychiatric: Mood and Affect: Mood normal. Behavior: Behavior normal. Thought Content: Thought content normal. Vitals: 04/14/24 0823 BP: 140/82 Pulse: 95 Resp: 18 Temp: 36.6 ??C (97.8 ??F) SpO2: 99% Weight: 117 kg (258 lb) Height: 190.5 cm (6' 3 ) No LMP for male patient. Assessment/Plan Patient advised due to size and possible depth of abscess he will need to go to the ER for further evaluation Diagnoses and all orders for this visit: Abscess (Primary) No results found for this or any previous visit (from the past 24 hour(s)). Patient Education: Disposition Treatment plan including expectations, follow up, and return precautions discussed with patient/parent, verbalizes understanding. Medication dosage, use, and potential adverse reactions discussed with patient/parent. Advised to follow up with PCP if symptoms do not resolve as expected or sooner if condition worsens. Signs/symptoms warranting ER evaluation reviewed. Patient and/or guardian was given an opportunity to ask questions, questions answered. This office note has been partially dictated using [employer] software, and as a result portions of the record may have been created with this software. Occasional wrong-word or '[id number]' substitutions may have occurred due to the inherent limitations of voice recognition software. Read the chartcarefully and recognize, using context, where substitutions have occurred Shellie Santizo NP documented in this encounter Plan of Treatment Not on file documented as of this encounter Visit Diagnoses Diagnosis Abscess- Primary Cellulitis and abscess of unspecified site documented in this encounter Historical Medications * This list may reflect changes made after this encounter. lisinopriL (PRINIVIL,ZESTRIL ) 40 mg tablet Take 1 tablet (40 mg total) by mouth daily 02/18/2024 added in this encounter Care Teams Rn Team Leader Relationship Specialty Start Date End Date Jb Aquino MD [address] [place] [address] PCP - General Family Medicine 04/14/24 documented as of this encounter
== END 2024-07-16 10:00 | disposition home or self-care (01) ==
PROVIDERS: Emergency Provider Nurse Practitioner Family; PCP Emergency Medicine
DX: L03.115 Cellulitis of right lower limb (principal)
CPT/HCPCS: 99213; G0463